=== PATIENT | female | born 1970 | race American Indian/Alaskan Native ===

== ENCOUNTER 2016-10-26 10:19 | Emergency (ER) | payer OTHER ==
[2016-10-26 11:04] VITALS: BP 147/90; PULSE 67; RESP 18; TEMP 98.5; O2SAT 99; BMI 20.8
[2016-10-26 11:38] LABS: URINE BILIRUBIN NEGATIVE (NEGATIVE); URINE BLOOD TRACE-INTACT (NEGATIVE); URINE GLUCOSE (UA) NEGATIVE (NEGATIVE); URINE KETONE NEGATIVE (NEGATIVE); URINE LEUKOCYTE ESTERASE NEGATIVE Leu/uL (NEGATIVE); URINE PROTEIN NEGATIVE mg/dL (<30 mg/dL); URINE UROBILINOGEN 0.2 E.U./dL (<1 E.U./dL)
[2016-10-26 11:43] LABS: URINE APPEARANCE CLEAR (CLEAR); URINE COLOR YELLOW (YELLOW)
[2016-10-26 11:52] LABS: URINE AMORPHOUS SEDIMENT TRACE; URINE BACTERIA MANY (NEG); URINE WBC 0 - 2 /hpf (0-6)
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
--- NOTE | 2016-10-26 12:39 | RAD ---
PROCEDURE: Right middle finger radiographs. HISTORY: finger pain s/p trauma COMPARISON: None available FINDINGS: RIGHT MIDDLE FINGER: Displaced fracture deformity of the proximal aspect distal 3rd phalanx, age indeterminate. Remainder of the right hand (as seen on the AP view) grossly unremarkable. JOINTS: No dislocation. SOFT TISSUES: Soft tissue swelling. No evidence of radiopaque foreign body. OTHER FINDINGS: None. IMPRESSION: Displaced fracture deformity of the proximal aspect distal 3rd phalanx, age indeterminate. Correlate with physical exam. Soft tissue swelling.
--- NOTE | 2016-10-26 12:54 | RAD ---
PROCEDURE: Left Hand Radiographs. HISTORY: finger pain s/p trauma COMPARISON: None. FINDINGS: BONES: Normal. No fracture. JOINTS: Normal. No osteoarthritic changes. SOFT TISSUES: Normal. OTHER FINDINGS: None. IMPRESSION: Normal left hand radiographs.
== END 2016-10-26 12:45 | disposition home or self-care (01) ==
LOC: ED 10:19
DX: S62.632A Displaced fracture of distal phalanx of right middle finger, initial encounter for closed fracture (principal); S63.612A Unspecified sprain of right middle finger, initial encounter; W22.8XXA Striking against or struck by other objects, initial encounter; R30.0 Dysuria; F17.210 Nicotine dependence, cigarettes, uncomplicated

== ENCOUNTER 2016-11-05 12:47 | Emergency (ER) | payer OTHER ==
--- NOTE | 2016-11-05 14:12 | ED PDOC ---
Arrival/HPI - General Time Seen by Provider: 11/05/16 13:45 - History of Present Illness Narrative History of Present Illness (Text): 46 y/o F c no PMHx p/w chest pain since yesterday. Describes pain as L sided, in a focal area, sharp, worse with movement or inspiration. She also notes subjective fever, nausea, NBNB vomiting x 2, loose stool, body aches. She denies cough, dysuria, rash, recent travel, surgery, or trauma. Denies history of cardiac disease or any cardiac testing in the past. Denies leg swelling, hormone use. Past Medical History - Past History Past History: No Previous - Infectious Disease Hx of Infectious Diseases: None - Tetanus Immunization Tetanus Immunization: Unknown - Past Medical History Past Medical History: No Previous (High cholesterol on the last primary care doctor visit) - Cardiac Hx Cardiac Disorders: No Other/Comment: Family History: Sister had stroke age 40 - Pulmonary Hx Respiratory Disorders: No - Neurological Hx Neurological Disorder: Yes Hx Dizziness: Yes Hx Seizures: Yes (1 time 31 years ago) - HEENT Hx HEENT Disorder: No - Renal Hx Renal Disorder: No - Endocrine/Metabolic Hx Endocrine Disorders: No - Hematological/Oncological Hx Blood Disorders: Yes Hx Anemia: Yes - Integumentary Hx Dermatological Disorder: No - Musculoskeletal/Rheumatological Hx Musculoskeletal Disorders: Yes Hx Falls: No Hx Fractures: Yes (Broken Foot and Ankle in the past) - Gastrointestinal Hx Gastrointestinal Disorders: Yes Hx Gastroesophageal Reflux: Yes Other/Comment: Gastritis - Genitourinary/Gynecological Hx Genitourinary Disorders: No - Psychiatric Hx Psychophysiologic Disorder: Yes Hx Depression: Yes Hx Emotional Abuse: No Hx Physical Abuse: No Hx Sexual Abuse: No Hx Substance Use: No - Surgical History Hx Section: Yes Other/Comment: 3 C-sections - Anesthesia Hx Anesthesia: Yes Hx Anesthesia Reactions: No Hx Malignant Hyperthermia: No - Suicidal Assessment Feels Threatened In Home Enviroment: No Family/Social History Family/Social History: No Known Family HX Smoking Status: Light Smoker < 10 Cigarettes Daily Hx Alcohol Use: Yes Hx Substance Use: No Hx Substance Use Treatment: No Allergies/Home Meds Allergies/Adverse Reactions: Allergies No Known Allergies Allergy (Verified 12/17/15 18:55) Review of Systems - Physician Review All systems were reviewed & negative as marked: Yes - Review of Systems Constitutional: Fevers Cardiovascular: Chest Pain Gastrointestinal: absent: Abdominal Pain Physical Exam - Physical Exam Narrative Physical Exam (Text): Constitutional: No acute distress. Head: Normocephalic. Atraumatic. Eyes: PERRL. ENT: Moist mucous membranes. Neck: Supple. Cardiovascular: Regular rate. Chest: Reproducible chest tenderness. Respiratory: Clear to auscultation bilaterally. GI: Soft. Nontender. Nondistended. Back: No CVA tenderness. Musculoskeletal: No swelling or tenderness. Skin: No rash. Neurologic: Alert, no focal deficit. Vital Signs Temp Pulse Resp BP Pulse Ox 11/05/16 16:43 98.1 F 60 18 132/78 100 11/05/16 12:48 54 L 18 139/85 100 Medical Decision Making ED Course and Treatment: EKG NSR 60 bpm, no ST/T wave changes. PERC negative. Likely viral syndrome. Will obtain cardiac enzymes to rule out ACS in this chest pain of over 24 hour duration. Will obtain CXR to exclude PNA. Treat with toradol, IVF, aspirin (patient took 162 at home). 11/05/16 16:34 Chest X-ray: Creator : Kal Woodson MD FINDINGS: LUNGS:No active pulmonary disease. PLEURA:No significant pleural effusion identified, no pneumothorax apparent. CARDIOVASCULAR:Normal. OSSEOUS STRUCTURES:No significant abnormalities. VISUALIZED UPPER ABDOMEN:Normal. OTHER FINDINGS:None. IMPRESSION: No active disease. Patient discharged home, f/u PMD, return to ER for worsening pain, fever, vomiting, dyspnea, or any other problem. - Lab Interpretations Lab Results: 11/05/16 14:30 11/05/16 14:30 Lab Results 11/05/16 14:30: WBC 6.2, RBC 3.96, Hgb 12.7, Hct 36.6, MCV 92.4, MCH 32.1, MCHC 34.7, RDW 13.5, Plt Count 274, MPV 11.5 H, Gran % 58.3, Lymph % (Auto) 32.0, [place] % (Auto) 7.9 H, Eos % (Auto) 0.8 L, Baso % (Auto) 1.0, Gran # 3.62, Lymph # 2.0, [place] # 0.5, Eos # 0.1, Baso # 0.06 11/05/16 14:30: Sodium 137, Potassium 4.2, Chloride 104, Carbon Dioxide 26, Anion Gap 11, BUN 14, Creatinine 0.7, Est GFR ( Amer) > 60, Est GFR (Non- Af Amer) > 60, Random Glucose 76, Calcium 9.8, Total Bilirubin 0.6, AST 30, ALT 35, Alkaline Phosphatase 59, Total Creatine Kinase 259 H, CK-MB (CK-2) 5.4 H, CK -MB (CK-2) % 2.1 L, Troponin I < 0.01, Total Protein 6.6, Albumin 4.0, Globulin 2.5, Albumin/Globulin Ratio 1.6, Lipase 248 11/05/16 14:30: Urine Color Yellow, Urine Appearance Clear, Urine pH 6.0, Ur Specific [place] >= 1.030, Urine Protein Negative, Urine Glucose (UA) Negative, Urine Ketones Negative, Urine Blood Trace-intact H, Urine Nitrate Negative, Urine Bilirubin Negative, Urine Urobilinogen 0.2, Ur Leukocyte Esterase Negative , Urine RBC 0 - 2, Urine WBC 0 - 2, Ur Epithelial Cells 1 - 3, Urine Bacteria Few - RAD Interpretation Radiology Orders: 11/05/16 15:26 CHEST PORTABLE [RAD] Stat - Medication Orders Current Medication Orders: Discontinued Medications Aspirin (Aspirin Chewable) Confirm Administered Dose 162 mg .ROUTE .STK-MED ONE Stop: 11/05/16 14:29 Ketorolac Tromethamine (Toradol) Confirm Administered Dose 30 mg .ROUTE .STK- MED ONE Stop: 11/05/16 14:29 Ondansetron HCl (Zofran Inj) Confirm Administered Dose 8 mg .ROUTE .STK-MED ONE Stop: 11/05/16 14:29 Disposition/Present on Arrival - Present on Arrival Any Indicators Present on Arrival: No History of DVT/PE: No History of Uncontrolled Diabetes: No Urinary Catheter: No History Surgical Site Infection Following: None - Disposition Have Diagnosis and Disposition been Completed?: Yes Diagnosis: Chest pain Disposition: HOME/ ROUTINE Disposition Time: 17:24 Patient Plan: Discharge Patient Problems: Current Active Problems Problem Status Onset Chest pain Acute Condition: STABLE Discharge Instructions (ExitCare): Chest Pain (ED), Viral Syndrome (ED) Referrals: [facility] [Outside] - Follow up with primary [facility] [Outside] - Follow up with primary
[2016-11-05 15:02] VITALS: RESP 18; O2SAT 100; BMI 22.4
[2016-11-05 15:25] LABS: URINE APPEARANCE CLEAR (CLEAR); URINE BILIRUBIN NEGATIVE (NEGATIVE); URINE BLOOD TRACE-INTACT (NEGATIVE); URINE COLOR YELLOW (YELLOW); URINE GLUCOSE (UA) NEGATIVE (NEGATIVE); URINE KETONE NEGATIVE (NEGATIVE); URINE LEUKOCYTE ESTERASE NEGATIVE Leu/uL (NEGATIVE); URINE PROTEIN NEGATIVE mg/dL (<30 mg/dL); URINE UROBILINOGEN 0.2 E.U./dL (<1 E.U./dL)
[2016-11-05 15:39] LABS: URINE BACTERIA FEW (NEG); URINE RBC 0 - 2 /hpf (0-2); URINE WBC 0 - 2 /hpf (0-6)
--- NOTE | 2016-11-05 16:32 | RAD ---
HISTORY: Chest Pain COMPARISON: 02/14/2015 FINDINGS: LUNGS: No active pulmonary disease. PLEURA: No significant pleural effusion identified, no pneumothorax apparent. CARDIOVASCULAR: Normal. OSSEOUS STRUCTURES: No significant abnormalities. VISUALIZED UPPER ABDOMEN: Normal. OTHER FINDINGS: None. IMPRESSION: No active disease.
[2016-11-05 16:44] VITALS: BP 132/78; PULSE 60; TEMP 98.1
[2016-11-05 16:51] LABS: ADD MANUAL DIFF? NO
[2016-11-05 16:54] LABS: BASO # 0.06 K/mm3 (0.0-2.0); EOS # 0.1 (0.0-0.7); EOS % 0.8 % (1.5-5.0); GRAN # 3.62 (1.4-6.5); GRAN % 58.3 % (50.0-68.0); HEMATOCRIT 36.6 % (36.0-48.0); MEAN CELL VOLUME 92.4 fL (80.0-105.0); MEAN CORPUSCULAR HEMOGLOBIN 32.1 pg (25.0-35.0); MEAN CORPUSCULAR HGB CONC 34.7 g/dl (31.0-37.0); MEAN PLATELET VOLUME 11.5 fl (7.0-11.0); MONO # 0.5 (0.1-0.6); MONO % 7.9 % (1.0-6.0); PLATELET COUNT 274 10^3/uL (120.0-450.0); RED CELL DISTRIBUTION WIDTH 13.5 % (11.5-14.5); WHITE BLOOD COUNT 6.2 10^3/ul (4.5-11.0)
[2016-11-05 17:04] LABS: ALB/GLOB RATIO 1.6 (1.1-1.8); ALKALINE PHOSPHATASE 59 U/L (38-133); ALT/SGPT 35 U/L (7-56); AST/SGOT 30 U/L (15-39); BILIRUBIN,TOTAL 0.6 mg/dL (0.2-1.3); BLOOD UREA NITROGEN 14 mg/dL (7-21); CALCIUM 9.8 mg/dL (8.4-10.5); CARBON DIOXIDE 26 mmol/L (21-33); CHLORIDE 104 mmol/L (98-107); GFR AFRICAN-AMERICAN > 60; GLUCOSE,RANDOM 76 mg/dL (70-110); LIPASE 248 U/L (23-300); POTASSIUM 4.2 mmol/L (3.6-5.0); SODIUM 137 mmol/L (132-148); TOTAL PROTEIN 6.6 g/dL (5.8-8.3)
[2016-11-05 17:19] LABS: TROPONIN I < 0.01 ng/mL
--- NOTE | 2016-11-05 18:18 | CARD ---
APPROVED REPORT EKG Measurement Heart [id number] <Conclusion> Normal sinus rhythm Normal ECG
== END 2016-11-05 17:45 | disposition home or self-care (01) ==
LOC: ED 12:47
DX: R07.9 Chest pain, unspecified (principal); Z82.3 Family history of stroke

== ENCOUNTER 2017-03-01 08:37 | Observation (INO) | payer OTHER ==
--- NOTE | 2017-03-01 09:09 | ED PDOC ---
Arrival/HPI - History of Present Illness Time/Duration: 4-6 hours Symptom Onset: Sudden Symptom Course: Unchanged Quality: Pressure Severity Level: 9 <Kamari Ramirez - Last Filed: 03/01/17 11:04> <Mike Hubbard - Last Filed: 03/01/17 11:08> - General Time Seen by Provider: 03/01/17 08:45 - History of Present Illness Narrative History of Present Illness (Text): 03/01/17 09:04 This is a 46 year old female with no significant PMHx who presents complaining of left sided chest pain that began at 3:00 this morning. Patient states that she woke up from sleep feeling a pressure like sensation that does not radiate. She also experienced right sided temporal headache with blurred vision as well as right arm and leg weakness. Patient feels short of breath and has pain with deep inspiration. Patient states that she is lightheaded and feels like she is about to pass out at times. Patient states that the last time she was asymptomatic was last night before she slept. Patient also complaining of diarrhea since 5:00 this morning. Of note, patient states that she has a significant family history of AVMs citing 4 family members who are due to it. (Kamari Ramirez) Past Medical History - Provider Review Nursing Documentation Reviewed: Yes - Past History Past History: No Previous - Infectious Disease Hx of Infectious Diseases: None - Tetanus Immunization Tetanus Immunization: Unknown - Past Medical History Past Medical History: No Previous (High cholesterol on the last primary care doctor visit) - Cardiac Hx Cardiac Disorders: No Other/Comment: Family History: Sister had stroke age 40 - Pulmonary Hx Respiratory Disorders: No - Neurological Hx Neurological Disorder: Yes Hx Dizziness: Yes Hx Seizures: Yes (1 time 31 years ago) - HEENT Hx HEENT Disorder: No - Renal Hx Renal Disorder: No - Endocrine/Metabolic Hx Endocrine Disorders: No - Hematological/Oncological Hx Blood Disorders: Yes Hx Anemia: Yes - Integumentary Hx Dermatological Disorder: No - Musculoskeletal/Rheumatological Hx Musculoskeletal Disorders: Yes Hx Falls: No Hx Fractures: Yes (Broken Foot and Ankle in the past) - Gastrointestinal Hx Gastrointestinal Disorders: Yes Hx Gastroesophageal Reflux: Yes Other/Comment: Gastritis - Genitourinary/Gynecological Hx Genitourinary Disorders: No - Psychiatric Hx Psychophysiologic Disorder: Yes Hx Depression: Yes Hx Emotional Abuse: No Hx Physical Abuse: No Hx Sexual Abuse: No Hx Substance Use: No - Surgical History Hx Section: Yes Other/Comment: 3 C-sections - Anesthesia Hx Anesthesia: Yes Hx Anesthesia Reactions: No Hx Malignant Hyperthermia: No - Suicidal Assessment Feels Threatened In Home Enviroment: No <Kamari Ramirez - Last Filed: 03/01/17 11:04> Family/Social History - Physician Review Nursing Documentation Reviewed: Yes Family/Social History: Other (AVM) Smoking Status: Light Smoker < 10 Cigarettes Daily Hx Alcohol Use: Yes Hx Substance Use: No Hx Substance Use Treatment: No <Kamari Ramirez S - Last Filed: 03/01/17 11:04> Allergies/Home Meds <Kamari Ramirez S - Last Filed: 03/01/17 11:04> <StevieMike Antonietta - Last Filed: 03/01/17 11:08> Allergies/Adverse Reactions: Allergies No Known Allergies Allergy (Verified 12/17/15 18:55) Home Medications: Home Meds Medication Instructions Recorded Confirmed No Known Home Med 03/01/17 03/01/17 Review of Systems - Review of Systems Constitutional: Normal Eyes: Vision Changes (blurred vision) ENT: Normal Respiratory: SOB, Other (pain with deep inspiration) Cardiovascular: Chest Pain (left sided close to sternum), Other (near-syncope) Gastrointestinal: Diarrhea Genitourinary Female: Normal Musculoskeletal: Normal Skin: Normal Neurological: Headache (right temporal) Hemo/Lymphatic: Normal Psychiatric: Normal <Kamari Ramirez S - Last Filed: 03/01/17 11:04> Physical Exam Vital Signs Reviewed: Yes Temperature: Afebrile Blood Pressure: Hypertensive Pulse: Regular Respiratory Rate: Normal Appearance: Positive for: Well-Appearing Pain Distress: Mild Mental Status: Positive for: Alert and Oriented X 3 - Systems Exam Head: Present: Atraumatic, Normocephalic Pupils: Present: PERRL Extroacular Muscles: Present: EOMI Conjunctiva: Present: Normal Mouth: Present: Moist Mucous Membranes Neck: Present: Normal Range of Motion Respiratory/Chest: Present: Good Air Exchange, Wheezes (right lower lobe end- expiratory wheezing). No: Accessory Muscle Use Cardiovascular: Present: Normal S1, S2, Bradycardic Abdomen: Present: Normal Bowel Sounds. No: Tenderness, Distention Upper Extremity: Present: Normal Inspection, NORMAL PULSES. No: Edema Lower Extremity: Present: Normal Inspection, NORMAL PULSES. No: Edema, CALF TENDERNESS Neurological: Present: GCS=15, CN II-XII Intact, Speech Normal, Motor Func Grossly Intact, Normal Sensory Function Skin: Present: Warm, Dry, Normal Color. No: Rashes <Kamari Ramirez - Last Filed: 03/01/17 11:04> Medical Decision Making <Kamari Ramirez - Last Filed: 03/01/17 11:04> - Lab Interpretations I have reviewed the lab results: Yes - EKG Interpretation Interpreted by ED Physician: Yes Type: 12 lead EKG <Mike Hubbard - Last Filed: 03/01/17 11:08> ED Course and Treatment: 03/01/17 09:16 EKG, Cardiac ISO, CBC, CMP, Coags, D dimer, Mag, Phos, CT Head w.o. contrast, Portable CXR, Urine , UA EKG shows sinus bradycardia at rate 59. No acute ST changes. (Kamari Ramirez) EKG: Ordered, reviewed, and independently interpreted the EKG. Rate : 57 BPM Rhythm : sinus bradycardia Interpretation : No ST-segment elevations or depressions, no T-wave inversions, normal intervals. Comparison : No previous EKG for comparison. 03/01/17 Patient Seen With Resident: In agreement with resident note which contains more details about the patient. Patient was seen and evaluated with resident. Came up with plan and treatment together. 03/01/17 10:[address] Esdras Art, who will admit patient to tele-observation. R/ o ACS and stroke (Mike Hubbard) - Lab Interpretations Lab Results: 03/01/17 09:16 03/01/17 09:16 Lab Results 03/01/17 09:30: D-Dimer, Quantitative 0.19 03/01/17 09:16: Urine Color Yellow, Urine Appearance Clear, Urine pH 6.0, Ur Specific [place] >= 1.030, Urine Protein Negative, Urine Glucose (UA) Negative, Urine Ketones Negative, Urine Blood Trace-intact H, Urine Nitrate Negative, Urine Bilirubin Negative, Urine Urobilinogen 0.2, Ur Leukocyte Esterase Negative , Urine RBC 0 - 2, Urine WBC 1 - 3, Ur Epithelial Cells 6 - 8, Urine Bacteria Trace 03/01/17 09:16: Sodium 142, Potassium 3.7, Chloride 107, Carbon Dioxide 27, Anion Gap 12, BUN 17, Creatinine 0.8, Est GFR ( Amer) > 60, Est GFR (Non- Af Amer) > 60, Random Glucose 89, Calcium 9.3, Phosphorus 4.3, Magnesium 1.7, Total Bilirubin 0.8, AST 26, ALT 27, Alkaline Phosphatase 56, Lactate Dehydrogenase 445, Total Creatine Kinase 101, Troponin I < 0.01, Total Protein 6.7, Albumin 4.1, Globulin 2.6, Albumin/Globulin Ratio 1.6 03/01/17 09:16: PT 10.3, INR 0.95, APTT 27.5 03/01/17 09:16: WBC 5.2, RBC 4.01, Hgb 12.5, Hct 36.9, MCV 92.0, MCH 31.2, MCHC 33.9, RDW 13.3, Plt Count 288, MPV 10.4, Gran % 58.2, Lymph % (Auto) 33.3, [place] % (Auto) 6.9 H, Eos % (Auto) 0.6 L, Baso % (Auto) 1.0, Gran # 3.02, Lymph # 1.7 , Dillon # 0.4, Eos # 0.0, Baso # 0.05 - RAD Interpretation Radiology Orders: 03/01/17 08:57 CXR [CHEST PORTABLE] [RAD] Stat 03/01/17 09:11 HEAD W/O CONTRAST [CT] Stat - Medication Orders Current Medication Orders: Discontinued Medications Aspirin (Aspirin Chewable) 324 mg PO STAT STA Stop: 03/01/17 10:20 Last Admin: 03/01/17 10:23 Dose: 324 mg Sodium Chloride (Sodium Chloride 0.9%) 500 mls @ 999 mls/hr IV .Q31M STA Stop: 03/01/17 10:40 Last Admin: 03/01/17 10:15 Dose: 999 mls/hr NIHSS Scale ([place]) Time Performed: 08:45 - How Severe is the Stoke Baseline Level of Consciousness: 0=Alert LOC to Questions: 0=Both comments correct LOC to commands: 0=Obeys both correctly Best Gaze: 0=Normal Visual: 0=No visual loss Facial: 0=Normal Motor Arm - Left: 0=No drift Motor Arm - Right: 0=No drift Motor Leg - Left: 0=No drift Motor Leg - Right: 0=No drift Limb Ataxia: 0=Absent Sensory: 0=Normal Best Language: 0=No aphasia Dysarthia: 0=Normal articulation Extinction & Inattention (Neglect): 0=Normal, no object Score: 0 Risk Level: No Stroke Risk <Mike Hubbard - Last Filed: 03/01/17 11:08> rTPA Inclusion/Exclusion - Refusal of Treatment Patient Refused Treatment: No - Inclusion Criteria for Altepase Patient is 18 years or Older: No The Clinical Diagnosis of Ischemic Stroke That is Causing a Potentially Disabling Neurological Deficit: Yes Time of Onset is Well Established to be Less Than 270 Minute Before Treatment Would Begin: No Risk/Benefit Discussed With Patient/Family Member Present: No <Mike Hubbard - Last Filed: 03/01/17 11:08> <Kamari Ramirez - Last Filed: 03/01/17 11:04> - PA / RENTAL AGENT / Resident Statement MD/DO has reviewed & agrees with the documentation as recorded. MD/DO has examined the patient and agrees with the treatment plan. - Scribe Statement The provider has reviewed the documentation as recorded by the Scribe <Mike Hubbard - Last Filed: 03/01/17 11:08> - Scribe Statement Zelda Mann Provider Scribe Attestation: All medical record entries made by the Scribe were at my direction and personally dictated by me. I have reviewed the chart and agree that the record accurately reflects my personal performance of the history, physical exam, medical decision making, and the department course for this patient. I have also personally directed, reviewed, and agree with the discharge instructions and disposition. (Mike Hubbard) Disposition/Present on Arrival - Present on Arrival Any Indicators Present on Arrival: No History of DVT/PE: No History of Uncontrolled Diabetes: No Urinary Catheter: No History Surgical Site Infection Following: None - Disposition Have Diagnosis and Disposition been Completed?: Yes Disposition Time: 10:30 <Kamari Ramirez - Last Filed: 03/01/17 11:04> - Disposition Patient Plan: Observation <Mike Hubbard - Last Filed: 03/01/17 11:08> - Disposition Diagnosis: Chest pain, TIA (transient ischemic attack) Disposition: HOSPITALIZED Patient Problems: Current Active Problems Problem Status Onset Chest pain Acute Condition: FAIR
[2017-03-01 09:27] LABS: URINE BILIRUBIN NEGATIVE (NEGATIVE); URINE BLOOD TRACE-INTACT (NEGATIVE); URINE GLUCOSE (UA) NEGATIVE (NEGATIVE); URINE KETONE NEGATIVE (NEGATIVE); URINE LEUKOCYTE ESTERASE NEGATIVE Leu/uL (NEGATIVE); URINE PROTEIN NEGATIVE mg/dL (<30 mg/dL); URINE UROBILINOGEN 0.2 E.U./dL (<1 E.U./dL)
[2017-03-01 09:28] LABS: URINE APPEARANCE CLEAR (CLEAR); URINE COLOR YELLOW (YELLOW)
[2017-03-01 09:29] LABS: BASO # 0.05 K/mm3 (0.0-2.0); EOS % 0.6 % (1.5-5.0); GRAN # 3.02 (1.4-6.5); GRAN % 58.2 % (50.0-68.0); HEMATOCRIT 36.9 % (36.0-48.0); LYMPH # 1.7 (1.2-3.4); LYMPH % 33.3 % (22.0-35.0); MEAN CORPUSCULAR HEMOGLOBIN 31.2 pg (25.0-35.0); MEAN CORPUSCULAR HGB CONC 33.9 g/dl (31.0-37.0); MEAN PLATELET VOLUME 10.4 fl (7.0-11.0); MONO # 0.4 (0.1-0.6); MONO % 6.9 % (1.0-6.0); RED CELL DISTRIBUTION WIDTH 13.3 % (11.5-14.5); WHITE BLOOD COUNT 5.2 10^3/ul (4.5-11.0)
[2017-03-01 09:32] LABS: INR 0.95 (0.93-1.08); PARTIAL THROMBOPLASTIN TIME 27.5 Seconds (23.7-30.8)
[2017-03-01 09:36] LABS: URINE BACTERIA TRACE (NEG); URINE RBC 0 - 2 /hpf (0-2)
[2017-03-01 09:47] LABS: ALB/GLOB RATIO 1.6 (1.1-1.8); ALKALINE PHOSPHATASE 56 U/L (38-126); ALT/SGPT 27 U/L (7-56); AST/SGOT 26 U/L (14-36); BILIRUBIN,TOTAL 0.8 mg/dL (0.2-1.3); BLOOD UREA NITROGEN 17 mg/dL (7-21); CALCIUM 9.3 mg/dL (8.4-10.5); CARBON DIOXIDE 27 mmol/L (21-33); CHLORIDE 107 mmol/L (98-107); GFR AFRICAN-AMERICAN > 60; GLUCOSE,RANDOM 89 mg/dL (70-110); MAGNESIUM 1.7 mg/dL (1.7-2.2); PHOSPHOROUS 4.3 mg/dL (2.5-4.5); POTASSIUM 3.7 mmol/L (3.6-5.0); SODIUM 142 mmol/L (132-148); TOTAL PROTEIN 6.7 g/dL (5.8-8.3)
[2017-03-01 09:58] LABS: TROPONIN I < 0.01 ng/mL
--- NOTE | 2017-03-01 10:09 | CT ---
PROCEDURE: CT HEAD WITHOUT CONTRAST. HISTORY: blurred vision, headache, chest pain. Fam Hx AVMs. COMPARISON: Comparison is made to 12/17/2015 TECHNIQUE: Axial computed tomography images were obtained through the head/brain without intravenous contrast. Radiation dose: Total exam DLP = 769.47 mGy-cm. This CT exam was performed using one or more of the following dose reduction techniques: Automated exposure control, adjustment of the mA and/or kV according to patient size, and/or use of iterative reconstruction technique. FINDINGS: HEMORRHAGE: No intracranial hemorrhage. BRAIN: No mass effect or edema. No atrophy or chronic microvascular ischemic changes. VENTRICLES: Unremarkable. No hydrocephalus. CALVARIUM: Unremarkable. PARANASAL SINUSES: Unremarkable as visualized. No significant inflammatory changes. MASTOID AIR CELLS: Unremarkable as visualized. No inflammatory changes. OTHER FINDINGS: None. IMPRESSION: No evidence of acute intracranial hemorrhage intracranial collection mass effect or midline shift. Neck and interval change since the previous exam noted.
[2017-03-01] MEDS ORDERED: Sodium Chloride 0.9% 500 ML IV STA (10:10)
--- NOTE | 2017-03-01 10:49 | RAD ---
HISTORY: chest pain COMPARISON: No prior. FINDINGS: LUNGS: No active pulmonary disease. PLEURA: No significant pleural effusion identified, no pneumothorax apparent. CARDIOVASCULAR: Normal. OSSEOUS STRUCTURES: No significant abnormalities. VISUALIZED UPPER ABDOMEN: Normal. OTHER FINDINGS: None. IMPRESSION: No active disease.
[2017-03-01 16:10] VITALS: BMI 20.8
[2017-03-01] MEDS ORDERED: Pneumococcal 23-Valent Vaccine IM ONE (16:11)
[2017-03-01 17:30] VITALS: RESP 20
--- NOTE | 2017-03-01 17:59 | CP.PCM.HP ---
Addendum entered and electronically signed by Yvonne Soliman DO 03/01/17 21:32: PE General: Pt is AAOx4, nontoxic appearing, in mild distress Head: Normocephalic, atraumatic Skin: Warm, dry HEENT: EOMI, PERRL, mucous membranes moist Neck: Mild R paracervical tenderness. CV: Regular rate and rhythm, +S1/S2, no murmurs, gallops, or rubs. (+) Reproducible chest wall tenderness to palpation. Respiratory: Lungs CTA bilaterally, no rales, rhonchi, or wheezing Abdomen: Soft, nondistended. (+) mild epigastric tenderness, no other tenderness. Extremities: No pedal edema, no calf tenderness. Good radial and DP pulses. Neuro: CN 2-12 intact. Motor: 4/5 strength in RUE and RLE as compared to 5/5 strength in LUE and LLE. Sensory deficit in C5/C5 dermatome on right. Patient is answering all questions appropriately. Psych: Normal affect, normal mood Original Note: <Yvonne Soliman - Last Filed: 03/01/17 21:21> History of Present Illness - History of Present Illness History of Present Illness: HPI: Pt is a 46 year old female with PMH significant for GERD and C4-C5 stenosis , who presents for evaluation of chest pain and dyspnea. Pt states that this morning, she woke up from sleep with midsternal chest pain described as sharp, like someone was kneeing her in the chest, rated 10/10, associated with dyspnea , blurry vision, and a sensation of dryness in the mouth. She states that she took Excedrin x 3, and the pain subsided until it returned again a few hours later while she was dropping off her grand children to school. She additionally reports an onset of nausea, nonbloody, nonbilious vomiting x2, and diarrhea x 3 that began this morning. She now reports the pain as rated 8/10, and states that the pain worsens when she presses on her chest. Pt states that she has had symptoms of chest pain intermittently for the past 2-3 weeks, however, symptoms worsened this morning, prompting hospital visit. She also states that she has had decreased appetite over the past few days. She has a history of dull, midepigastric abdominal pain for which she takes Famotidine. Denies recent cold or congestion, palpitations, or urinary symptoms. Pt additionally reports 3-4 day history of right sided headache radiating down to the R side of her neck, associated with back pain. She states that she has had a few month history of intermittent tingling and weakness to the R arm and leg, which has worsened over the past 2-3 weeks. She states that a few months ago, she fell and broke her finger because her R leg "gave out". She says that her R leg gives out once in a while, and sometimes she feels that it is more difficult to hold a cup with her R hand. Denies LOC, or recent falls. PMD: Pt does not like her PMD and does not see him PMH: GERD, C4-C5 stenosis with flattening of L side of the cord PSH: x3 [employer] IN[employer] history: , 1 natural , 3 C-sections. LMP was in July, Meds: Famotidine PRN, Excedrin PRN Allergies: NKDA Family hx: Aneurysms, strokes, seizures, DM, colon CA, throat CA, CAD, father Social hx: - smokes occasionally (2-3 cigarettes per day) - drinks EtOH (1 beer daily) - denies recreational drugs - lives with 2 young grandchildren - unemployed Present on Admission - Present on Admission Any Indicators Present on Admission: No Review of Systems - Review of Systems All systems: reviewed and no additional remarkable complaints except Review of Systems: As per HPI Past Patient History - Infectious Disease Hx of Infectious Diseases: None - Tetanus Immunizations Tetanus Immunization: Unknown - Past Social History Smoking Status: Current Some Days Smoker - CARDIAC Hx Cardiac Disorders: Yes Hx Hypercholesterolemia: Yes Other/Comment: Family History: Sister had stroke age 40 - PULMONARY Hx Respiratory Disorders: Yes (SMOKES 6 CIGARETTES EVERY NOW AND THEN.) - NEUROLOGICAL Hx Neurological Disorder: Yes Hx Dizziness: Yes Hx Seizures: Yes (1 time 31 years ago) - HEENT Hx HEENT Problems: No - RENAL Hx Chronic Kidney Disease: No - ENDOCRINE/METABOLIC Hx Endocrine Disorders: No - HEMATOLOGICAL/ONCOLOGICAL Hx Blood Disorders: Yes Hx Anemia: Yes (HAD BLOOD TRANSFUSION 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 1983) - INTEGUMENTARY Hx Dermatological Problems: No - MUSCULOSKELETAL/RHEUMATOLOGICAL Hx Musculoskeletal Disorders: Yes (CERVICAL RADICULOPATHY) Hx Falls: No Hx Fractures: Yes (Broken Foot and Ankle in the past) - GASTROINTESTINAL Hx Gastrointestinal Disorders: Yes Hx Gastroesophageal Reflux: Yes Other/Comment: Gastritis - GENITOURINARY/GYNECOLOGICAL Hx Genitourinary Disorders: Yes (C SECTION X 3) Hx Urinary Tract Infection: Yes - PSYCHIATRIC Hx Psychophysiologic Disorder: Yes Hx Depression: Yes Hx Emotional Abuse: No Hx Physical Abuse: No Hx Sexual Abuse: No Hx Substance Use: No - SURGICAL HISTORY Hx Surgeries: Yes Other/Comment: 3 C-sections - ANESTHESIA Hx Anesthesia: Yes Hx Anesthesia Reactions: No Hx Malignant Hyperthermia: No Meds Allergies/Adverse Reactions: Allergies Allergy/AdvReac Type Severity Reaction Status Date / Time No Known Allergies Allergy Verified 03/01/17 13:35 Results - Vital Signs Recent Vital Signs: Last Vital Signs Temp 98.8 F 03/01/17 16:00 Pulse 69 03/01/17 16:00 Resp 20 03/01/17 16:00 BP 148/99 H 03/01/17 16:00 Pulse Ox 100 03/01/17 16:00 - Labs Result Diagrams: 03/01/17 09:16 03/01/17 09:16 Assessment & Plan - Assessment and Plan (Free Text) Assessment: 46 yo F with PMH for GERD and C4-C5 stenosis w/ radiculopathy admitted for evaluation of chest pain, and right sided lower and upper extremity weakness and sensory loss. Plan: Chest pain - EKG, CXR, and labs ordered and WNL - Serial cardiac enzymes (troponin x 1 negative) - D-dimer negative, no indication for DVT/PE workup at this time - Low dose ASA - Cardiac consult R sided weakness and sensory loss. - CT head negative - MRI of the cervical spine from 12/18/15 shows moderate C4-C5 stenosis with moderate flattening of the left side of the cord - Repeat MRI spine/ Repeat MRI Brain - Folate/B12 lvls ordered - Neuro consult - PT eval Vomiting, diarrhea and abdominal pain - IVF - Cultures for C-diff - Stool Cultures - Protonix - Zofran/Pepcid PRN DVT prophylaxis - Heparin vs SCDs Patient seen, examined, and reviewed with Attending Yvonne Soliman - Date & Time Date: 03/01/17 Time: 01:30 <Austin SONI,Jenn - Last Filed: 03/02/17 13:24> Results - Vital Signs Recent Vital Signs: Last Vital Signs Temp 98.3 F 03/02/17 09:15 Pulse 51 L 03/02/17 09:15 Resp 20 03/02/17 09:15 BP 152/91 H 03/02/17 09:15 Pulse Ox 100 03/02/17 09:15 - Labs Result Diagrams: 03/02/17 05:15 03/02/17 05:15 Labs: Laboratory Results - last 24 hr 03/02/17 03/02/17 03/02/17 05:15 05:15 05:30 WBC 5.3 RBC 3.97 Hgb 12.5 Hct 36.7 MCV 92.4 MCH 31.5 MCHC 34.1 RDW 13.4 Plt Count 275 MPV 10.4 Gran % 47.3 L Lymph % (Auto) 44.5 H [place] % (Auto) 6.8 H Eos % (Auto) 0.8 L Baso % (Auto) 0.6 Gran # 2.52 Lymph # 2.4 [place] # 0.4 Eos # 0.0 Baso # 0.03 Sodium 140 Potassium 3.7 Chloride 107 Carbon Dioxide 27 Anion Gap 10 BUN 12 Creatinine 0.7 Est GFR ( Amer) > 60 Est GFR (Non-Af Amer) > 60 Random Glucose 98 Calcium 9.4 Total Bilirubin 0.9 AST 24 ALT 32 Alkaline Phosphatase 59 Troponin I < 0.01 Total Protein 6.5 Albumin 3.7 Globulin 2.8 Albumin/Globulin Ratio 1.3 Triglycerides 240 H Cholesterol 234 H LDL Cholesterol Direct 124 HDL Cholesterol 77 H Vitamin B12 430 03/02/17 12:15 WBC RBC Hgb Hct MCV MCH MCHC RDW Plt Count MPV Gran % Lymph % (Auto) [place] % (Auto) Eos % (Auto) Baso % (Auto) Gran # Lymph # [place] # Eos # Baso # Sodium Potassium Chloride Carbon Dioxide Anion Gap BUN Creatinine Est GFR ( Amer) Est GFR (Non-Af Amer) Random Glucose Calcium Total Bilirubin AST ALT Alkaline Phosphatase Troponin I < 0.01 Total Protein Albumin Globulin Albumin/Globulin Ratio Triglycerides Cholesterol LDL Cholesterol Direct HDL Cholesterol Vitamin B12 Attending/Attestation - Attestation I have personally seen and examined this patient.: Yes I have fully participated in the care of the patient.: Yes I have reviewed all pertinent clinical information: Yes Notes (Text): 03/02/17 13:18 Patient was seen and examined with medical records technician. Agreed with resident assessment and plan. 46 year old female with PMH significant for GERD and C4-C5 stenosis,chronic smoking, and non compliance is admitted with chest pain, EKG is negative for ischemic changes, has chest wall tenderness.Etiology is likely non cardiac.W will monitor patient in telemetry, will get serial troponins and will get cardiology consult. Patient has mild right leg weakness 4/5, which as per patient it is chronic.She is ambulatory with out any assistance.We will get MRI of Brain and C spine. Management plan was discussed in detail with patient Education was provided.
--- NOTE | 2017-03-01 20:54 | CARD ---
APPROVED REPORT EKG Measurement Heart [id number] <Conclusion> Sinus bradycardia Otherwise normal ECG
[2017-03-02] MEDS ORDERED: Pantoprazole 40 mg EC Tab PO SCH (06:00)
[2017-03-02 06:12] LABS: BASO # 0.03 K/mm3 (0.0-2.0); BASO % 0.6 % (0.0-3.0); EOS % 0.8 % (1.5-5.0); GRAN # 2.52 (1.4-6.5); GRAN % 47.3 % (50.0-68.0); HEMATOCRIT 36.7 % (36.0-48.0); LYMPH # 2.4 (1.2-3.4); LYMPH % 44.5 % (22.0-35.0); MEAN CELL VOLUME 92.4 fl (80.0-105.0); MEAN CORPUSCULAR HEMOGLOBIN 31.5 pg (25.0-35.0); MEAN CORPUSCULAR HGB CONC 34.1 g/dl (31.0-37.0); MEAN PLATELET VOLUME 10.4 fl (7.0-11.0); MONO # 0.4 (0.1-0.6); MONO % 6.8 % (1.0-6.0); RED CELL DISTRIBUTION WIDTH 13.4 % (11.5-14.5); WHITE BLOOD COUNT 5.3 10^3/ul (4.5-11.0)
[2017-03-02 07:31] LABS: ALB/GLOB RATIO 1.3 (1.1-1.8); ALKALINE PHOSPHATASE 59 U/L (38-126); ALT/SGPT 32 U/L (7-56); AST/SGOT 24 U/L (14-36); BILIRUBIN,TOTAL 0.9 mg/dL (0.2-1.3); BLOOD UREA NITROGEN 12 mg/dL (7-21); CALCIUM 9.4 mg/dL (8.4-10.5); CARBON DIOXIDE 27 mmol/L (21-33); CHLORIDE 107 mmol/L (95-110); CHOLESTEROL 234 mg/dL (130-200); GFR AFRICAN-AMERICAN > 60; GLUCOSE,RANDOM 98 mg/dL (70-110); POTASSIUM 3.7 mmol/L (3.6-5.0); SODIUM 140 mmol/L (132-148); TOTAL PROTEIN 6.5 g/dL (5.8-8.3)
--- NOTE | 2017-03-02 09:07 | MRI ---
PROCEDURE: MRI BRAIN WITHOUT CONTRAST HISTORY: neuropathy. Hx + MRI COMPARISON: Comparison made with prior brain 03/01/2017. TECHNIQUE: Multiplanar, multisequence MR images of the brain were obtained without intravenous contrast enhancement. FINDINGS: HEMORRHAGE: No acute parenchymal, subarachnoid nor extra-axial hemorrhage. No evidence of hemosiderin deposition anterior pleuritic repeat echo weighted sequence. DWI: No evidence of an acute or early subacute infarction seen on diffusion imaging exit. BRAIN PARENCHYMA: No mass effect or edema. No atrophy or chronic microvascular ischemic changes. VENTRICLES: No obstructive hydrocephalus. CRANIUM: No other calvarial abnormalities are identified. ORBITS: . Orbits and contents grossly unremarkable. PARANASAL SINUSES/MASTOIDS: Clear VASCULAR SYSTEM: Visualized major vascular flow voids at skull base are patent. OTHER FINDINGS: None. IMPRESSION: No acute intracranial hemorrhage or infarct.
--- NOTE | 2017-03-02 09:18 | MRI ---
PROCEDURE: MRI of the cervical spine dated 03/01/2017 HISTORY: Neuropathy. Hx of (+) MRI COMPARISON: None available. TECHNIQUE: Multiecho multiplanar sequences were performed through the cervical spine without the use of intravenous contrast. . Note the study is somewhat limited by motion artifact. FINDINGS: Current study reveals no acute compression fractures no retropulsed fragments. Vertebral bodies exhibit relatively normal stature. There is mild reversal of the normal cervical lordosis however vertebral bodies otherwise exhibit normal alignment. Facets normally aligned. Send No paraspinal abnormality. C2-C3: There is disc desiccation however disc space height maintained. Minimal degenerative squaring of the uncovertebral joints. . Facet joints also mildly hypertrophic. No disc herniation, spinal canal stenosis or neural foraminal narrowing. . C3-C4: Mild disc desiccation however disc space height maintained. Minimal broad-based disc bulge results in mild canal narrowing and flattening of the ventral surface of the thecal sac and spinal cord. . The facet joints are slightly overgrown with no evidence of foraminal stenosis. Herniation, spinal canal stenosis or neural foraminal narrowing. C4-C5: There is disc desiccation and mild anterior disc space narrowing. Small height medium sized asymmetric disc ridge complex larger on the left than right and contiguous with hypertrophic uncovertebral joints. Facets also hypertrophic. There is moderate to significant central canal stenosis and cord compression. Exit foramina appear marginal to mildly narrowed bilaterally. C5-C6: Mild age related disc desiccation and disc space narrowing more so along the anterior disc margin. Small focal central and bilateral disc ridge complex results mild canal narrowing and focal central cord compression. The facets are slightly overgrown. Exit foramina appear adequate. C6-C7: Mild age related disc desiccation. Disc space height maintained. No disc herniation or significant disc bulge. C7-T1: No disc herniation, spinal canal stenosis or neural foraminal narrowing. OTHER FINDINGS: No definitive intrinsic signal changes seen within the visualized spinal cord. Cervicomedullary junction unremarkable. IMPRESSION: Limited motion degraded study. Mild to moderate multilevel degenerative spondylosis with significant central canal stenosis at the C4-C5 and to a lesser degree C3-C4 levels as detailed above.
--- NOTE | 2017-03-02 16:16 | CP.PCM.CON ---
<Alvin Bernard - Last Filed: 03/02/17 18:06> History of Present Illness - History of Present Illness History of Present Illness: Neurology Consult Note for Dr. 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 As per patient, the dizziness and nausea are intermittent, no specific triggering factors. Also reports new onset weakness in her RUE and RLE prior to arrival. She reports she is generally improved today, her blurred vision is resolved, her headache is improved, as is her extremity weakness. Some residual chest pain and associated shortness of breath, but denies nausea/emesis , fevers/chills, new vision changes, diarrhea/constipation, dysuria/hematuria, or near-syncope/syncope. R Arm paresthesia not worsened with head movements, RLE paresthesia not impeding gait. All other ROS in 12-point system review negative PMH: as above PSH: x3 FHx: Aneurysms, strokes, seizures, DM, colon CA, throat CA, CAD SHx: admits tobacco (2-3 cigarettes per day) & EtOH (1 beer daily), denies illicits/IVDA PMD: None Review of Systems - Review of Systems All systems: reviewed and no additional remarkable complaints except (as per HPI ) Past Patient History - Infectious Disease Hx of Infectious Diseases: None - Tetanus Immunizations Tetanus Immunization: Unknown - Past Social History Smoking Status: Current Some Days Smoker - CARDIAC Hx Cardiac Disorders: Yes Hx Hypercholesterolemia: Yes - PULMONARY Hx Respiratory Disorders: Yes (SMOKES 6 CIGARETTES EVERY NOW AND THEN.) - NEUROLOGICAL Hx Neurological Disorder: Yes Hx Dizziness: Yes Hx Seizures: Yes (1 time 31 years ago) - HEENT Hx HEENT Problems: No - RENAL Hx Chronic Kidney Disease: No - ENDOCRINE/METABOLIC Hx Endocrine Disorders: No - HEMATOLOGICAL/ONCOLOGICAL Hx Blood Disorders: Yes Hx Anemia: Yes (HAD BLOOD TRANSFUSION 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 1983) - INTEGUMENTARY Hx Dermatological Problems: No - MUSCULOSKELETAL/RHEUMATOLOGICAL Hx Musculoskeletal Disorders: Yes (CERVICAL RADICULOPATHY) Hx Falls: No Hx Fractures: Yes (Broken Foot and Ankle in the past) - GASTROINTESTINAL Hx Gastrointestinal Disorders: Yes Hx Gastroesophageal Reflux: Yes Other/Comment: Gastritis - GENITOURINARY/GYNECOLOGICAL Hx Genitourinary Disorders: Yes (C SECTION X 3) Hx Urinary Tract Infection: Yes - PSYCHIATRIC Hx Psychophysiologic Disorder: Yes Hx Depression: Yes Hx Emotional Abuse: No Hx Physical Abuse: No Hx Sexual Abuse: No Hx Substance Use: No - SURGICAL HISTORY Hx Surgeries: Yes Other/Comment: 3 C-sections - ANESTHESIA Hx Anesthesia: Yes Hx Anesthesia Reactions: No Hx Malignant Hyperthermia: No Meds Allergies/Adverse Reactions: Allergies Allergy/AdvReac Type Severity Reaction Status Date / Time No Known Allergies Allergy Verified 03/01/17 13:35 - Medications Medications: Current Medications Acetaminophen (Tylenol 325mg Tab) 650 mg PO Q6H PRN PRN Reason: Pain, severe (8-10) Last Admin: 03/01/17 21:37 Dose: 650 mg Aspirin (Aspirin Chewable) 81 mg PO DAILY TARUN Last Admin: 03/02/17 12:27 Dose: 81 mg Atorvastatin Calcium (Lipitor) 20 mg PO DIN TARUN Gabapentin (Neurontin) 100 mg PO TID TARUN PRN Reason: Protocol Ketorolac Tromethamine (Toradol) 15 mg IVP Q6 PRN PRN Reason: Headache/ Pain (Severe 8-10) Ondansetron HCl (Zofran Inj) 4 mg IVP Q6H PRN PRN Reason: Nausea/Vomiting Pantoprazole Sodium (Protonix Ec Tab) 40 mg PO 0600 [facility] Physical Exam - Constitutional Appears: Well, Non-toxic, No Acute Distress - Head Exam Head Exam: ATRAUMATIC, NORMAL INSPECTION, NORMOCEPHALIC - Eye Exam Eye Exam: EOMI, Normal appearance, PERRL. absent: Conjunctival injection, Scleral icterus Pupil Exam: NORMAL ACCOMODATION, PERRL. absent: Fixed, Irregular, Unequal - ENT Exam ENT Exam: Mucous Membranes Moist. absent: Mucous Membranes Dry - Neck Exam Neck exam: Positive for: Full Rom (some intentional limitation of movement due to pain, but passive ROM fully intact), Tenderness (some pain with rotational movement R) Additional comments: no exacerbation of RUE paresthesia with any ROM testing, or neck compression Spurling's negative No restricted clavicle on R - Respiratory Exam Respiratory Exam: Clear to Auscultation Bilateral, NORMAL BREATHING PATTERN. absent: Accessory Muscle Use, Chest Wall Tenderness, Decreased Breath Sounds, Prolonged Expiratory Phase, Rales, Rhonchi, Wheezes, Respiratory Distress - Cardiovascular Exam Cardiovascular Exam: REGULAR RHYTHM, RRR, +S1, +S2. absent: Bradycardia, Tachycardia, Irregular Rhythm, JVD, +S4 - GI/Abdominal Exam GI & Abdominal Exam: Normal Bowel Sounds, Soft. absent: Distended, Firm, Rigid , Tenderness - Extremities Exam Extremities exam: Positive for: full ROM, normal capillary refill, normal inspection, pedal pulses present. Negative for: calf tenderness, joint swelling , pedal edema, tenderness Additional comments: reported RLE paresthesia, but full ROM and equal bilateral LE motor strength - Neurological Exam Neurological exam: Alert, CN II-XII Intact, Normal Gait, Oriented x3 Additional comments: Motor strength 5/5 bilateral UE/LE/mussel opener Sensory grossly intact and equal bilaterally No-sided extinct on palpatory testing bilaterally - Psychiatric Exam Psychiatric exam: Anxious, Normal Affect - Skin Skin Exam: Dry, Intact, Normal Color, Warm Results - Vital Signs Recent Vital Signs: Last Vital Signs Temp 98.3 F 03/02/17 09:15 Pulse 60 03/02/17 10:00 Resp 20 03/02/17 09:15 BP 152/91 H 03/02/17 09:15 Pulse Ox 100 03/02/17 09:15 - Labs Result Diagrams: 03/02/17 05:15 03/02/17 05:15 Labs: Laboratory Results - last 24 hr 03/02/17 03/02/17 03/02/17 05:15 05:15 05:30 WBC 5.3 RBC 3.97 Hgb 12.5 Hct 36.7 MCV 92.4 MCH 31.5 MCHC 34.1 RDW 13.4 Plt Count 275 MPV 10.4 Gran % 47.3 L Lymph % (Auto) 44.5 H [place] % (Auto) 6.8 H Eos % (Auto) 0.8 L Baso % (Auto) 0.6 Gran # 2.52 Lymph # 2.4 [place] # 0.4 Eos # 0.0 Baso # 0.03 Sodium 140 Potassium 3.7 Chloride 107 Carbon Dioxide 27 Anion Gap 10 BUN 12 Creatinine 0.7 Est GFR ( Amer) > 60 Est GFR (Non-Af Amer) > 60 Random Glucose 98 Calcium 9.4 Total Bilirubin 0.9 AST 24 ALT 32 Alkaline Phosphatase 59 Troponin I < 0.01 Total Protein 6.5 Albumin 3.7 Globulin 2.8 Albumin/Globulin Ratio 1.3 Triglycerides 240 H Cholesterol 234 H LDL Cholesterol Direct 124 HDL Cholesterol 77 H Vitamin B12 430 TSH 3rd Generation 03/02/17 03/02/17 12:15 13:25 WBC RBC Hgb Hct MCV MCH MCHC RDW Plt Count MPV Gran % Lymph % (Auto) [place] % (Auto) Eos % (Auto) Baso % (Auto) Gran # Lymph # [place] # Eos # Baso # Sodium Potassium Chloride Carbon Dioxide Anion Gap BUN Creatinine Est GFR ( Amer) Est GFR (Non-Af Amer) Random Glucose Calcium Total Bilirubin AST ALT Alkaline Phosphatase Troponin I < 0.01 Total Protein Albumin Globulin Albumin/Globulin Ratio Triglycerides Cholesterol LDL Cholesterol Direct HDL Cholesterol Vitamin B12 TSH 3rd Generation 1.29 Assessment & Plan - Assessment and Plan (Free Text) Assessment: This is a 46 yo AA F with PMH of seizures, gastritis, and 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 She is also complaining of RUE and RLE weakness. Her RUE weakness is likely 2/2 her C4-C5 stenosis. No signs of thoracic outlet compressions, motor strength in bilateral extremities improved and equal in bilateral upper and lower. There does not appear to be an acute neurologic component to her reported RLE weakness; comparable strength to LLE on exam today. May be anxiety component to her general presentation, as she admits that she gets anxious about her health. Her dizziness may be 2/2 stenosis vs anxiety, may also be a vasovagal component. Head CT and MRI brain were negatie for any acute findings. Cervical spine MRI notable for mild-moderate multilevel degenerative spondylosis with significant central canal stenosis at C4/5 and some at C3/4. Plan: 1) Fioricet q8 TARUN x6 dose for headache 2) PT/OT, may require therapy outpt for her RUE/hand weakness 3) Gabapentin 100mg PO TID for neuropathy Patient reviewed and discussed with attending, Dr. Snow. <Richard Snow - Last Filed: 03/02/17 21:21> Meds - Medications Medications: Current Medications Acetaminophen (Tylenol 325mg Tab) 650 mg PO Q6H PRN PRN Reason: Pain, severe (8-10) Last Admin: 03/01/17 21:37 Dose: 650 mg Acetaminophen/Butalbital/Caffeine (Fioricet) 1 tab PO Q8 [facility] Stop: 03/04/17 06:01 Last Admin: 03/02/17 17:50 Dose: 1 tab Aspirin (Aspirin Chewable) 81 mg PO DAILY [facility] Last Admin: 03/02/17 12:27 Dose: 81 mg Atorvastatin Calcium (Lipitor) 20 mg PO DIN [facility] Last Admin: 03/02/17 17:50 Dose: 20 mg Gabapentin (Neurontin) 100 mg PO TID [facility] PRN Reason: Protocol Last Admin: 03/02/17 17:50 Dose: 100 mg Ketorolac Tromethamine (Toradol) 15 mg IVP Q6 PRN PRN Reason: Headache/ Pain (Severe 8-10) Ondansetron HCl (Zofran Inj) 4 mg IVP Q6H PRN PRN Reason: Nausea/Vomiting Pantoprazole Sodium (Protonix Ec Tab) 40 mg PO 0600 [facility] Results - Vital Signs Recent Vital Signs: Last Vital Signs Temp 98.6 F 03/02/17 16:00 Pulse 54 L 03/02/17 16:00 Resp 20 03/02/17 16:00 BP 128/87 03/02/17 16:00 Pulse Ox 100 03/02/17 16:00 - Labs Result Diagrams: 03/02/17 05:15 03/02/17 05:15 Labs: Laboratory Results - last 24 hr 03/02/17 03/02/17 03/02/17 05:15 05:15 05:30 WBC 5.3 RBC 3.97 Hgb 12.5 Hct 36.7 MCV 92.4 MCH 31.5 MCHC 34.1 RDW 13.4 Plt Count 275 MPV 10.4 Gran % 47.3 L Lymph % (Auto) 44.5 H [place] % (Auto) 6.8 H Eos % (Auto) 0.8 L Baso % (Auto) 0.6 Gran # 2.52 Lymph # 2.4 [place] # 0.4 Eos # 0.0 Baso # 0.03 Sodium 140 Potassium 3.7 Chloride 107 Carbon Dioxide 27 Anion Gap 10 BUN 12 Creatinine 0.7 Est GFR ( Amer) > 60 Est GFR (Non-Af Amer) > 60 Random Glucose 98 Calcium 9.4 Total Bilirubin 0.9 AST 24 ALT 32 Alkaline Phosphatase 59 Troponin I < 0.01 Total Protein 6.5 Albumin 3.7 Globulin 2.8 Albumin/Globulin Ratio 1.3 Triglycerides 240 H Cholesterol 234 H LDL Cholesterol Direct 124 HDL Cholesterol 77 H Vitamin B12 430 TSH 3rd Generation 03/02/17 03/02/17 12:15 13:25 WBC RBC Hgb Hct MCV MCH MCHC RDW Plt Count MPV Gran % Lymph % (Auto) [place] % (Auto) Eos % (Auto) Baso % (Auto) Gran # Lymph # [place] # Eos # Baso # Sodium Potassium Chloride Carbon Dioxide Anion Gap BUN Creatinine Est GFR ( Amer) Est GFR (Non-Af Amer) Random Glucose Calcium Total Bilirubin AST ALT Alkaline Phosphatase Troponin I < 0.01 Total Protein Albumin Globulin Albumin/Globulin Ratio Triglycerides Cholesterol LDL Cholesterol Direct HDL Cholesterol Vitamin B12 TSH 3rd Generation 1.29 Attending/Attestation - Attestation I have personally seen and examined this patient.: Yes I have fully participated in the care of the patient.: Yes I have reviewed all pertinent clinical information: Yes
[2017-03-02] MEDS: Apap-Butalbital-Caffeine 325-50-40mg Tab PO SCH (17:50)
--- NOTE | 2017-03-02 19:27 | CP.PCM.DIS ---
Provider - Provider Date of Admission: 03/01/17 10:33 Attending physician: Jenn Avila MD Consults: Neuro - Edy Mattinallah - Cardio Time Spent in preparation of Discharge (in minutes): 40 Diagnosis - Discharge Diagnosis (1) Chest pain Status: Resolved (2) Weakness of left arm Status: Resolved Hospital Course - Lab Results Lab Results: Most Recent Lab Values WBC 5.3 10^3/ul (4.5-11.0) 03/02/17 05:15 RBC 3.97 10^6/uL (3.5-6.1) 03/02/17 05:15 Hgb 12.5 g/dL (12.0-16.0) 03/02/17 05:15 Hct 36.7 % (36.0-48.0) 03/02/17 05:15 MCV 92.4 fl (80.0-105.0) 03/02/17 05:15 MCH 31.5 pg (25.0-35.0) 03/02/17 05:15 MCHC 34.1 g/dl (31.0-37.0) 03/02/17 05:15 RDW 13.4 % (11.5-14.5) 03/02/17 05:15 Plt Count 275 10^3/uL (120.0-450.0) 03/02/17 05:15 MPV 10.4 fl (7.0-11.0) 03/02/17 05:15 Gran % 47.3 % (50.0-68.0) L 03/02/17 05:15 Lymph % (Auto) 44.5 % (22.0-35.0) H 03/02/17 05:15 Pierce % (Auto) 6.8 % (1.0-6.0) H 03/02/17 05:15 Eos % (Auto) 0.8 % (1.5-5.0) L 03/02/17 05:15 Baso % (Auto) 0.6 % (0.0-3.0) 03/02/17 05:15 Gran # 2.52 (1.4-6.5) 03/02/17 05:15 Lymph # 2.4 (1.2-3.4) 03/02/17 05:15 Pierce # 0.4 (0.1-0.6) 03/02/17 05:15 Eos # 0.0 (0.0-0.7) 03/02/17 05:15 Baso # 0.03 K/mm3 (0.0-2.0) 03/02/17 05:15 PT 10.3 Seconds (9.9-11.8) 03/01/17 09:16 INR 0.95 (0.93-1.08) 03/01/17 09:16 APTT 27.5 Seconds (23.7-30.8) 03/01/17 09:16 D-Dimer, Quantitative 0.19 mg/L FEU (0-0.50) 03/01/17 09:30 Sodium 140 mmol/L (132-148) 03/02/17 05:15 Potassium 3.7 mmol/L (3.6-5.0) 03/02/17 05:15 Chloride 107 mmol/L (95-110) 03/02/17 05:15 Carbon Dioxide 27 mmol/L (21-33) 03/02/17 05:15 Anion Gap 10 (10-20) 03/02/17 05:15 BUN 12 mg/dL (7-21) 03/02/17 05:15 Creatinine 0.7 mg/dL (0.5-1.4) 03/02/17 05:15 Est GFR ( Amer) > 60 03/02/17 05:15 Est GFR (Non-Af Amer) > 60 03/02/17 05:15 Random Glucose 98 mg/dL (70-110) 03/02/17 05:15 Calcium 9.4 mg/dL (8.4-10.5) 03/02/17 05:15 Phosphorus 4.3 mg/dL (2.5-4.5) 03/01/17 09:16 Magnesium 1.7 mg/dL (1.7-2.2) 03/01/17 09:16 Total Bilirubin 0.9 mg/dL (0.2-1.3) 03/02/17 05:15 AST 24 U/L (14-36) 03/02/17 05:15 ALT 32 U/L (7-56) 03/02/17 05:15 Alkaline Phosphatase 59 U/L (38-126) 03/02/17 05:15 Lactate Dehydrogenase 445 U/L (333-699) 03/01/17 09:16 Total Creatine Kinase 101 U/L (35-230) 03/01/17 09:16 Troponin I < 0.01 ng/mL 03/02/17 12:15 Total Protein 6.5 g/dL (5.8-8.3) 03/02/17 05:15 Albumin 3.7 g/dL (3.0-4.8) 03/02/17 05:15 Globulin 2.8 gm/dL 03/02/17 05:15 Albumin/Globulin Ratio 1.3 (1.1-1.8) 03/02/17 05:15 Triglycerides 240 mg/dL (35-160) H 03/02/17 05:15 Cholesterol 234 mg/dL (130-200) H 03/02/17 05:15 LDL Cholesterol Direct 124 mg/dL (0-129) 03/02/17 05:15 HDL Cholesterol 77 mg/dL (29-60) H 03/02/17 05:15 Vitamin B12 430 pg/mL (239-931) 03/02/17 05:15 TSH 3rd Generation 1.29 mIU/mL (0.46-4.68) 03/02/17 13:25 Urine Color Yellow (YELLOW) 03/01/17 09:16 Urine Appearance Clear (CLEAR) 03/01/17 09:16 Urine pH 6.0 (4.7-8.0) 03/01/17 09:16 Ur Specific Ferrum >= 1.030 (1.005-1.035) 03/01/17 09:16 Urine Protein Negative mg/dL (<30 mg/dL) 03/01/17 09:16 Urine Glucose (UA) Negative mg/dL (NEGATIVE) 03/01/17 09:16 Urine Ketones Negative mg/dL (NEGATIVE) 03/01/17 09:16 Urine Blood Trace-intact (NEGATIVE) H 03/01/17 09:16 Urine Nitrate Negative (NEGATIVE) 03/01/17 09:16 Urine Bilirubin Negative (NEGATIVE) 03/01/17 09:16 Urine Urobilinogen 0.2 E.U./dL (<1 E.U./dL) 03/01/17 09:16 Ur Leukocyte Esterase Negative Neeru/uL (NEGATIVE) 03/01/17 09:16 Urine RBC 0 - 2 /hpf (0-2) 03/01/17 09:16 Urine WBC 1 - 3 /hpf (0-6) 03/01/17 09:16 Ur Epithelial Cells 6 - 8 /hpf (0-5) 03/01/17 09:16 Urine Bacteria Trace (NEG) 03/01/17 09:16 - Hospital Course Hospital Course: Pt is a 46 year old female with PMH significant for GERD and C4-C5 stenosis, who presented for evaluation of chest pain and dyspnea. Pt reported that she had had 2-3 weeks of intermittent chest pain, however, on the morning of her admission, she had 2 brief episodes of sharp, severe chest pain associated with dyspnea, of which both subsided within a few minutes. Pt had also had nausea, vomiting, and diarrhea that morning. Pt additionally reported few month history of paresthesias to the right arm and leg, sometimes associated with some weakness, causing her to fall a few times. She had complaints of right sided headache radiating down to the neck. In the ED, pt had a CT of the head and CXR, which were WNL. Patient was admitted for evaluation of chest pain and right sided weakness. During her admission, pt had no additional episodes of chest pain, dyspnea, vomiting, or diarrhea. v Serial cardiac enzymes were negative. Prior records were reviewed revealing patient had an MRI of the cervical spine showing C4-C5 stenosis. Repeat MRI was done showing similar C4-C5 stenosis, and also some mild C3-C4 stenosis, brain MRI was negative. Recruiter was consulted, who requested an echocardiogram, which was WNL, and cleared the patient. Neurologist was also consulted, who requested Rx for neurontin and outpatient follow up. Patient additionally had cholesterol panel showing hypercholesterolemia and hypertriglyceridemia. At the time of discharge, patient reports feeling better. Headache is improved , patient is hungry and tolerating PO. She denies further chest pain, dyspnea, visual or hearing changes, abdominal pain, N/V/D, and is able to walk around on her own. Discussed with patient need for dietary modifications to reduce cholesterol. She expresses understanding and is comfortable with the plan of discharge. Patient seen, examined, and reviewed with Attending Yvonne Soliman PGY-1 - Date & Time of H&P Date of H&P: 03/02/17 Time of H&P: 11:00 Discharge Exam - Head Exam Head Exam: ATRAUMATIC, NORMAL INSPECTION, NORMOCEPHALIC - Eye Exam Eye Exam: EOMI, Normal appearance - ENT Exam ENT Exam: Mucous Membranes Moist - Respiratory Exam Respiratory Exam: Clear to PA & Lateral, NORMAL BREATHING PATTERN, UNREMARKABLE - Cardiovascular Exam Cardiovascular Exam: RRR, +S1, +S2 - GI/Abdominal Exam GI & Abdominal Exam: Soft. absent: Tenderness - Extremities Exam Additional comments: absent pedal edema - Back Exam Back exam: absent: CVA tenderness (L), CVA tenderness (R) - Neurological Exam Neurological exam: Alert, Oriented x3 - Psychiatric Exam Psychiatric exam: Normal Affect, Normal Mood - Skin Skin Exam: Dry, Intact, Normal Color, Warm Discharge Plan - Follow Up Plan Condition: FAIR Disposition: HOME/ ROUTINE Instructions: Transient Ischemic Attack (DC), Chest Pain (ED)
--- NOTE | 2017-03-02 19:35 | CP.PCM.PN ---
<Yvonne Soliman - Last Filed: 03/02/17 19:35> Subjective - Date & Time of Evaluation Date of Evaluation: 03/02/17 Time of Evaluation: 19:34 - Subjective Subjective: Patient has been seen and examined. No overnight events reported. She has no complaints at this time. Denies CP,SOB, blurry vision, and weakness. Objective - Vital Signs/Intake and Output Vital Signs (last 24 hours): Temp Pulse Resp BP Pulse Ox 98.6 F 54 L 20 128/87 100 03/02/17 16:00 03/02/17 16:00 03/02/17 16:00 03/02/17 16:00 03/02/17 16:00 - Labs Labs: 03/02/17 05:15 03/02/17 05:15 PT 10.3 Seconds (9.9-11.8) 03/01/17 09:16 INR 0.95 (0.93-1.08) 03/01/17 09:16 APTT 27.5 Seconds (23.7-30.8) 03/01/17 09:16 - Constitutional Appears: Well, Non-toxic, No Acute Distress - Head Exam Head Exam: ATRAUMATIC, NORMOCEPHALIC - Eye Exam Eye Exam: EOMI, Normal appearance - ENT Exam ENT Exam: Mucous Membranes Moist - Respiratory Exam Respiratory Exam: Clear to Ausculation Bilateral, NORMAL BREATHING PATTERN - Cardiovascular Exam Cardiovascular Exam: RRR, +S1, +S2 - GI/Abdominal Exam GI & Abdominal Exam: Soft. absent: Tenderness - Extremities Exam Extremities Exam: absent: Pedal Edema - Neurological Exam Neurological Exam: Alert, Awake, Oriented x3 Neuro motor strength exam: Left Upper Extremity: 5, Right Upper Extremity: 5, Left Lower Extremity: 5, Right Lower Extremity: 5 - Psychiatric Exam Psychiatric exam: Normal Affect, Normal Mood - Skin Skin Exam: Dry, Intact, Normal Color, Warm Assessment and Plan - Assessment and Plan (Free Text) Assessment: 6 yo F with PMH for GERD and C4-C5 stenosis w/ radiculopathy admitted for evaluation of chest pain, and right sided lower and upper extremity weakness and sensory loss. Plan: Plan: Chest pain - EKG, CXR, and labs ordered and WNL - serial troponins (-) - D-dimer negative, no indication for DVT/PE workup at this time - Low dose ASA - Cardiac consult R sided weakness and sensory loss. - CT head negative - MRI of the cervical spine shows C3-4 stenosis and more severe stenosis at C4- C5 - Brain MRI normal - B12 levels normal - Neuro consulted recs appreciated. - PT eval Vomiting, diarrhea and abdominal pain (resolved) - Protonix - Zofran/Pepcid PRN DVT prophylaxis - Heparin vs SCDs Patient seen, examined, and reviewed with Attending Yvonne Soliman <Austin SONI,Jenn - Last Filed: 03/03/17 14:42> Objective - Vital Signs/Intake and Output Vital Signs (last 24 hours): Temp Pulse Resp BP Pulse Ox 97.8 F 44 L 20 137/77 99 03/03/17 06:00 03/03/17 10:00 03/03/17 06:00 03/03/17 06:00 03/03/17 06:00 Intake and Output: 03/03/17 03/03/17 06:59 18:59 Intake Total 660 Balance 660 - Labs Labs: 03/02/17 05:15 03/02/17 05:15 PT 10.3 Seconds (9.9-11.8) 03/01/17 09:16 INR 0.95 (0.93-1.08) 03/01/17 09:16 APTT 27.5 Seconds (23.7-30.8) 03/01/17 09:16 Attending/Attestation - Attestation I have personally seen and examined this patient.: Yes I have fully participated in the care of the patient.: Yes I have reviewed all pertinent clinical information, including history, physical exam and plan: Yes Notes (Text): 03/03/17 14:38 Patient was seen and examined with medical coordinator pesticide use. Agreed with resident assessment and plan. 46 year old female with PMH significant for GERD and C4-C5 stenosis,chronic smoking, and non compliance is admitted with chest pain, EKG is negative for ischemic changes, has chest wall tenderness.Etiology is likely non cardiac.Telemetry is unremarkable.Serial troponins are normal.We will follow up Echo results, if no significant abnormality.She can be discharged home and will follow up with PCP and cardiology. Patient has mild right leg weakness 4/5, which as per patient it is chronic.She is ambulatory with out any assistance.MRI of Brain is normal.MRI c spine showed c4-C5 mild spinal stenosis which is stable.Patient is ambulatory.Neurology evaluation is appreciated. Management plan was discussed in detail with patient Education was provided. 03/03/17 14:40
--- NOTE | 2017-03-02 22:09 | CARD ---
APPROVED REPORT EXAM: Two-dimensional and M-mode echocardiogram with Doppler and color Doppler. INDICATION Chest Pain 2D DIMENSIONS Left Atrium (2D)3.1 (1.6-4.0cm)IVSd1.3 (0.7-1.1cm) LVDd4.2 (3.9-5.9cm)PWd1.2 (0.7-1.1cm) LVDs2.7 (2.5-4.0cm)FS (%) 35.6 % LVEF (%)65.4 (>50%) M-Mode DIMENSIONS Aortic Root2.50 (2.2-3.7cm)Aortic Cusp Exc.1.70 (1.5-2.0cm) Aortic Valve AoV Peak Tswlxihp295.0cm/Cresencio Peak GR.12mmHg Mitral Valve MV E Nytxfelj68.1cm/sMV A Auinjqti15.2cm/sE/A ratio1.8 TDI E/Lateral E'0.0E/Medial E'0.0 Tricuspid Valve TR Peak [id number]/sRAP [id number] Peak Gr.20mmHg [id number] LEFT VENTRICLE The left ventricle is normal size. There is borderline to mild concentric left ventricular hypertrophy. The left ventricular function is normal. The left ventricular ejection fraction is within the normal range. There is normal LV segmental wall motion. The left ventricular diastolic function is normal. RIGHT VENTRICLE The right ventricle is normal size. There is normal right ventricular wall thickness. The right ventricular systolic function is normal. ATRIA The left atrium size is normal. The right atrium size is normal. AORTIC VALVE The aortic valve is normal in structure. No aortic regurgitation is present. There is no aortic valvular stenosis. MITRAL VALVE The mitral valve is normal in structure. There is no mitral valve regurgitation noted. TRICUSPID VALVE There is trace tricuspid regurgitation. There is no pulmonary hypertension. GREAT VESSELS The aortic root is normal in size. The IVC is normal in size and collapses >50% with inspiration. PERICARDIAL EFFUSION There is no pericardial effusion. <Conclusion> The left ventricle is normal size. There is borderline to mild concentric left ventricular hypertrophy. The left ventricular function is normal. The left ventricular ejection fraction is within the normal range. There is normal LV segmental wall motion. The left ventricular diastolic function is normal.
--- NOTE | 2017-03-02 23:04 | CON ---
CARDIOLOGY CONSULTATION HISTORY OF PRESENT ILLNESS: The patient is a 46-year-old -[place] female who is known to have severe spinal canal stenosis. She is a smoker and drinker. She presents because of retrosternal chest pain that is pressure in nature, nonradiating, not associated with diaphoresis. The patient denies any other substance abuse and is unaware of any prior cardiac history. The patient stated that she was diagnosed with cervical spinal canal stenosis, but was followed because the doctor at that time did not take her insurance. The patient does not report any imbalanced gait, urinary or fecal incontinence. The patient does report bilateral arm numbness. SOCIAL HISTORY: Smoker and drinker. MEDICATIONS: Aspirin 81 mg once a day, Lipitor 20 mg once a day, Protonix 40 mg once a day, Zofran 4 mg q.6 hours p.r.n. PHYSICAL EXAMINATION: GENERAL: The patient is a middle-aged female who does not appear to be in any distress. VITAL SIGNS: Blood pressure 152/91, heart rate 61, temperature 98.3, respirations 20. HEENT: Normocephalic. NECK: No JVD. CHEST: Clear. HEART: S1 and S2 regular. EXTREMITIES: No edema. LABORATORY DATA: Hemoglobin, hematocrit, white count, and platelet count are within normal limit. Today's SMA-7 is entirely within normal limits. Two sets of troponins are negative. Triglycerides 214, total cholesterol is 234, HDL cholesterol is 77. PT, PTT, and D-dimer are within normal limits. Cervical spine MRI revealed [id number] multilevel degenerative spondylosis with significant central canal stenosis at C4-C5 and to a lesser degree at C3-C4 levels. Brain MRI, no acute findings. EKG reveals sinus bradycardia, rate of 57. ASSESSMENT: 1. Chest pain. Myocardial infarction is ruled out. 2. Mild sinus bradycardia. 3. Hyperlipidemia. 4. Cervical spinal canal stenosis. 5. Hypertension. RECOMMENDATIONS: Continue current aspirin 81 mg once a day, Lipitor 20 mg once a day. I would review the echocardiography study performed today. Obtain urine for drug screen. Obtain TSH level. Arnold Yañez MD [facility] # [id number]
[2017-03-03] MEDS: Apap-Butalbital-Caffeine 325-50-40mg Tab PO SCH ×2 (02:35→08:49)
[2017-03-03 07:23] VITALS: BP 137/77; TEMP 97.8; O2SAT 99
--- NOTE | 2017-03-03 14:09 | CP.PCM.DIS ---
<Yvonne Soliman - Last Filed: 03/03/17 14:06> Provider - Provider Date of Admission: 03/01/17 10:33 Attending physician: Jenn Avila MD Consults: Neuro - Edy Yañez Cardio Time Spent in preparation of Discharge (in minutes): 45 Diagnosis - Discharge Diagnosis (1) Weakness of left arm Status: Resolved (2) Chest pain Status: Resolved Hospital Course - Lab Results Lab Results: Most Recent Lab Values WBC 5.3 10^3/ul (4.5-11.0) 03/02/17 05:15 RBC 3.97 10^6/uL (3.5-6.1) 03/02/17 05:15 Hgb 12.5 g/dL (12.0-16.0) 03/02/17 05:15 Hct 36.7 % (36.0-48.0) 03/02/17 05:15 MCV 92.4 fl (80.0-105.0) 03/02/17 05:15 MCH 31.5 pg (25.0-35.0) 03/02/17 05:15 MCHC 34.1 g/dl (31.0-37.0) 03/02/17 05:15 RDW 13.4 % (11.5-14.5) 03/02/17 05:15 Plt Count 275 10^3/uL (120.0-450.0) 03/02/17 05:15 MPV 10.4 fl (7.0-11.0) 03/02/17 05:15 Gran % 47.3 % (50.0-68.0) L 03/02/17 05:15 Lymph % (Auto) 44.5 % (22.0-35.0) H 03/02/17 05:15 [place] % (Auto) 6.8 % (1.0-6.0) H 03/02/17 05:15 Eos % (Auto) 0.8 % (1.5-5.0) L 03/02/17 05:15 Baso % (Auto) 0.6 % (0.0-3.0) 03/02/17 05:15 Gran # 2.52 (1.4-6.5) 03/02/17 05:15 Lymph # 2.4 (1.2-3.4) 03/02/17 05:15 [place] # 0.4 (0.1-0.6) 03/02/17 05:15 Eos # 0.0 (0.0-0.7) 03/02/17 05:15 Baso # 0.03 K/mm3 (0.0-2.0) 03/02/17 05:15 PT 10.3 Seconds (9.9-11.8) 03/01/17 09:16 INR 0.95 (0.93-1.08) 03/01/17 09:16 APTT 27.5 Seconds (23.7-30.8) 03/01/17 09:16 D-Dimer, Quantitative 0.19 mg/L FEU (0-0.50) 03/01/17 09:30 Sodium 140 mmol/L (132-148) 03/02/17 05:15 Potassium 3.7 mmol/L (3.6-5.0) 03/02/17 05:15 Chloride 107 mmol/L (95-110) 03/02/17 05:15 Carbon Dioxide 27 mmol/L (21-33) 03/02/17 05:15 Anion Gap 10 (10-20) 03/02/17 05:15 BUN 12 mg/dL (7-21) 03/02/17 05:15 Creatinine 0.7 mg/dL (0.5-1.4) 03/02/17 05:15 Est GFR ( Amer) > 60 03/02/17 05:15 Est GFR (Non-Af Amer) > 60 03/02/17 05:15 Random Glucose 98 mg/dL (70-110) 03/02/17 05:15 Calcium 9.4 mg/dL (8.4-10.5) 03/02/17 05:15 Phosphorus 4.3 mg/dL (2.5-4.5) 03/01/17 09:16 Magnesium 1.7 mg/dL (1.7-2.2) 03/01/17 09:16 Total Bilirubin 0.9 mg/dL (0.2-1.3) 03/02/17 05:15 AST 24 U/L (14-36) 03/02/17 05:15 ALT 32 U/L (7-56) 03/02/17 05:15 Alkaline Phosphatase 59 U/L (38-126) 03/02/17 05:15 Lactate Dehydrogenase 445 U/L (333-699) 03/01/17 09:16 Total Creatine Kinase 101 U/L (35-230) 03/01/17 09:16 Troponin I < 0.01 ng/mL 03/02/17 12:15 Total Protein 6.5 g/dL (5.8-8.3) 03/02/17 05:15 Albumin 3.7 g/dL (3.0-4.8) 03/02/17 05:15 Globulin 2.8 gm/dL 03/02/17 05:15 Albumin/Globulin Ratio 1.3 (1.1-1.8) 03/02/17 05:15 Triglycerides 240 mg/dL (35-160) H 03/02/17 05:15 Cholesterol 234 mg/dL (130-200) H 03/02/17 05:15 LDL Cholesterol Direct 124 mg/dL (0-129) 03/02/17 05:15 HDL Cholesterol 77 mg/dL (29-60) H 03/02/17 05:15 Vitamin B12 430 pg/mL (239-931) 03/02/17 05:15 TSH 3rd Generation 1.29 mIU/mL (0.46-4.68) 03/02/17 13:25 Urine Color Yellow (YELLOW) 03/01/17 09:16 Urine Appearance Clear (CLEAR) 03/01/17 09:16 Urine pH 6.0 (4.7-8.0) 03/01/17 09:16 Ur Specific [place] >= 1.030 (1.005-1.035) 03/01/17 09:16 Urine Protein Negative mg/dL (<30 mg/dL) 03/01/17 09:16 Urine Glucose (UA) Negative mg/dL (NEGATIVE) 03/01/17 09:16 Urine Ketones Negative mg/dL (NEGATIVE) 03/01/17 09:16 Urine Blood Trace-intact (NEGATIVE) H 03/01/17 09:16 Urine Nitrate Negative (NEGATIVE) 03/01/17 09:16 Urine Bilirubin Negative (NEGATIVE) 03/01/17 09:16 Urine Urobilinogen 0.2 E.U./dL (<1 E.U./dL) 03/01/17 09:16 Ur Leukocyte Esterase Negative Neeru/uL (NEGATIVE) 03/01/17 09:16 Urine RBC 0 - 2 /hpf (0-2) 03/01/17 09:16 Urine WBC 1 - 3 /hpf (0-6) 03/01/17 09:16 Ur Epithelial Cells 6 - 8 /hpf (0-5) 03/01/17 09:16 Urine Bacteria Trace (NEG) 03/01/17 09:16 - Hospital Course Hospital Course: Pt is a 46 year old female with PMH significant for GERD and C4-C5 stenosis, who presented for evaluation of chest pain and dyspnea. Pt reported that she had had 2-3 weeks of intermittent chest pain, however, on the morning of her admission, she had 2 brief episodes of sharp, severe chest pain associated with dyspnea, of which both subsided within a few minutes. Pt had also had nausea, vomiting, and diarrhea that morning. Pt additionally reported few month history of paresthesias to the right arm and leg, sometimes associated with some weakness, causing her to fall a few times. She had complaints of right sided headache radiating down to the neck. In the ED, pt had a CT of the head and CXR, which were WNL. Patient was admitted for evaluation of chest pain and right sided weakness. During her admission, pt had no additional episodes of chest pain, dyspnea, vomiting, or diarrhea. v Serial cardiac enzymes were negative. Prior records were reviewed revealing patient had an MRI of the cervical spine showing C4-C5 stenosis. Repeat MRI was done showing similar C4-C5 stenosis, and also some mild C3-C4 stenosis, brain MRI was negative. Retail Advertising Sales Manager was consulted, who requested an echocardiogram, which was WNL, and cleared the patient. Neurologist was also consulted, who requested Rx for neurontin and outpatient follow up. Patient additionally had cholesterol panel showing hypercholesterolemia and hypertriglyceridemia. At the time of discharge, patient reports feeling better. Headache is improved , patient is hungry and tolerating PO. She denies further chest pain, dyspnea, visual or hearing changes, abdominal pain, N/V/D, and is able to walk around on her own. Discussed with patient need for dietary modifications to reduce cholesterol. She will go home with ASA, Lipitor, and Gapapentin. She will follow up with her PMD, Cardiology, and Neurology within 1 week. She expresses understanding and is comfortable with discharge plan and medications Patient seen, examined, and reviewed with Attending Yvonne Sloiman PGY-1 - Date & Time of H&P Date of H&P: 03/03/17 Time of H&P: 08:00 Discharge Exam - Head Exam Head Exam: ATRAUMATIC, NORMOCEPHALIC - Eye Exam Eye Exam: EOMI, Normal appearance, PERRL - ENT Exam ENT Exam: Mucous Membranes Moist - Respiratory Exam Respiratory Exam: Clear to PA & Lateral - Cardiovascular Exam Cardiovascular Exam: RRR, +S1, +S2 - GI/Abdominal Exam GI & Abdominal Exam: Soft. absent: Tenderness - Extremities Exam Additional comments: no pedal edema - Neurological Exam Neurological exam: Alert, CN II-XII Intact, Normal Gait, Oriented x3, Reflexes Normal - Psychiatric Exam Psychiatric exam: Normal Affect, Normal Mood - Skin Skin Exam: Dry, Normal Color, Warm Discharge Plan - Discharge Medications Prescriptions: Aspirin [Aspirin Chewable] 81 mg PO DAILY #30 chew Atorvastatin [Lipitor] 20 mg PO DIN #30 tab Gabapentin [Neurontin] 100 mg PO TID #60 cap - Follow Up Plan Condition: FAIR Disposition: HOME/ ROUTINE Instructions: Transient Ischemic Attack (DC), Chest Pain (ED) Additional Instructions: follow up with primary care doctor in 3-5 days follow up with cardiology in 1 week follow up with neurology in 1 week <Jenn Avila MD - Last Filed: 03/03/17 14:45> Provider - Provider Date of Admission: 03/01/17 10:33 Attending physician: Jenn Avila MD Hospital Course - Lab Results Lab Results: Most Recent Lab Values WBC 5.3 10^3/ul (4.5-11.0) 03/02/17 05:15 RBC 3.97 10^6/uL (3.5-6.1) 03/02/17 05:15 Hgb 12.5 g/dL (12.0-16.0) 03/02/17 05:15 Hct 36.7 % (36.0-48.0) 03/02/17 05:15 MCV 92.4 fl (80.0-105.0) 03/02/17 05:15 MCH 31.5 pg (25.0-35.0) 03/02/17 05:15 MCHC 34.1 g/dl (31.0-37.0) 03/02/17 05:15 RDW 13.4 % (11.5-14.5) 03/02/17 05:15 Plt Count 275 10^3/uL (120.0-450.0) 03/02/17 05:15 MPV 10.4 fl (7.0-11.0) 03/02/17 05:15 Gran % 47.3 % (50.0-68.0) L 03/02/17 05:15 Lymph % (Auto) 44.5 % (22.0-35.0) H 03/02/17 05:15 [place] % (Auto) 6.8 % (1.0-6.0) H 03/02/17 05:15 Eos % (Auto) 0.8 % (1.5-5.0) L 03/02/17 05:15 Baso % (Auto) 0.6 % (0.0-3.0) 03/02/17 05:15 Gran # 2.52 (1.4-6.5) 03/02/17 05:15 Lymph # 2.4 (1.2-3.4) 03/02/17 05:15 [place] # 0.4 (0.1-0.6) 03/02/17 05:15 Eos # 0.0 (0.0-0.7) 03/02/17 05:15 Baso # 0.03 K/mm3 (0.0-2.0) 03/02/17 05:15 PT 10.3 Seconds (9.9-11.8) 03/01/17 09:16 INR 0.95 (0.93-1.08) 03/01/17 09:16 APTT 27.5 Seconds (23.7-30.8) 03/01/17 09:16 D-Dimer, Quantitative 0.19 mg/L FEU (0-0.50) 03/01/17 09:30 Sodium 140 mmol/L (132-148) 03/02/17 05:15 Potassium 3.7 mmol/L (3.6-5.0) 03/02/17 05:15 Chloride 107 mmol/L (95-110) 03/02/17 05:15 Carbon Dioxide 27 mmol/L (21-33) 03/02/17 05:15 Anion Gap 10 (10-20) 03/02/17 05:15 BUN 12 mg/dL (7-21) 03/02/17 05:15 Creatinine 0.7 mg/dL (0.5-1.4) 03/02/17 05:15 Est GFR ( Amer) > 60 03/02/17 05:15 Est GFR (Non-Af Amer) > 60 03/02/17 05:15 Random Glucose 98 mg/dL (70-110) 03/02/17 05:15 Calcium 9.4 mg/dL (8.4-10.5) 03/02/17 05:15 Phosphorus 4.3 mg/dL (2.5-4.5) 03/01/17 09:16 Magnesium 1.7 mg/dL (1.7-2.2) 03/01/17 09:16 Total Bilirubin 0.9 mg/dL (0.2-1.3) 03/02/17 05:15 AST 24 U/L (14-36) 03/02/17 05:15 ALT 32 U/L (7-56) 03/02/17 05:15 Alkaline Phosphatase 59 U/L (38-126) 03/02/17 05:15 Lactate Dehydrogenase 445 U/L (333-699) 03/01/17 09:16 Total Creatine Kinase 101 U/L (35-230) 03/01/17 09:16 Troponin I < 0.01 ng/mL 03/02/17 12:15 Total Protein 6.5 g/dL (5.8-8.3) 03/02/17 05:15 Albumin 3.7 g/dL (3.0-4.8) 03/02/17 05:15 Globulin 2.8 gm/dL 03/02/17 05:15 Albumin/Globulin Ratio 1.3 (1.1-1.8) 03/02/17 05:15 Triglycerides 240 mg/dL (35-160) H 03/02/17 05:15 Cholesterol 234 mg/dL (130-200) H 03/02/17 05:15 LDL Cholesterol Direct 124 mg/dL (0-129) 03/02/17 05:15 HDL Cholesterol 77 mg/dL (29-60) H 03/02/17 05:15 Vitamin B12 430 pg/mL (239-931) 03/02/17 05:15 TSH 3rd Generation 1.29 mIU/mL (0.46-4.68) 03/02/17 13:25 Urine Color Yellow (YELLOW) 03/01/17 09:16 Urine Appearance Clear (CLEAR) 03/01/17 09:16 Urine pH 6.0 (4.7-8.0) 03/01/17 09:16 Ur Specific [place] >= 1.030 (1.005-1.035) 03/01/17 09:16 Urine Protein Negative mg/dL (<30 mg/dL) 03/01/17 09:16 Urine Glucose (UA) Negative mg/dL (NEGATIVE) 03/01/17 09:16 Urine Ketones Negative mg/dL (NEGATIVE) 03/01/17 09:16 Urine Blood Trace-intact (NEGATIVE) H 03/01/17 09:16 Urine Nitrate Negative (NEGATIVE) 03/01/17 09:16 Urine Bilirubin Negative (NEGATIVE) 03/01/17 09:16 Urine Urobilinogen 0.2 E.U./dL (<1 E.U./dL) 03/01/17 09:16 Ur Leukocyte Esterase Negative Neeru/uL (NEGATIVE) 03/01/17 09:16 Urine RBC 0 - 2 /hpf (0-2) 03/01/17 09:16 Urine WBC 1 - 3 /hpf (0-6) 03/01/17 09:16 Ur Epithelial Cells 6 - 8 /hpf (0-5) 03/01/17 09:16 Urine Bacteria Trace (NEG) 03/01/17 09:16 Attending/Attestation - Attestation I have personally seen and examined this patient.: Yes I have fully participated in the care of the patient.: Yes I have reviewed all pertinent clinical information, including history, physical exam and plan: Yes Notes (Text): 03/03/17 14:43 Patient was seen and examined with medical recruiter. Agreed with resident assessment and plan. 46 year old female with PMH significant for GERD and C4-C5 stenosis,chronic smoking, and non compliance is admitted with chest pain, EKG is negative for ischemic changes, had chest wall tenderness.Etiology is likely non cardiac.Telemetry is unremarkable.Serial troponins are normal.Echo showed normal systolic function .Patient is pain free.She can be discharged home and will follow up with PCP and cardiology. Patient has mild right leg weakness 4/5, which as per patient it is chronic.She is ambulatory with out any assistance.MRI of Brain is normal.MRI c spine showed c4-C5 mild spinal stenosis which is stable.Patient is ambulatory, has been started on Neurontin by Neurology. Management plan was discussed in detail with patient Education was provided.
[2017-03-03 14:19] VITALS: PULSE 44
== END 2017-03-03 14:29 | disposition home or self-care (01) ==
LOC: ED 08:37 → ERH 10:33 → 3RSO 12:18 → UNDODISOB 03-02 19:22
PROVIDERS: ADMIT Hospitalist; ATTEND Internal Medicine
DX: R07.9 Chest pain, unspecified (principal); M48.02 Spinal stenosis, cervical region; M54.12 Radiculopathy, cervical region; E78.00 Pure hypercholesterolemia, unspecified; Z80.0 Family history of malignant neoplasm of digestive organs; Z80.1 Family history of malignant neoplasm of trachea, bronchus and lung; Z83.3 Family history of diabetes mellitus; Z82.49 Family history of ischemic heart disease and other diseases of the circulatory system; Z82.0 Family history of epilepsy and other diseases of the nervous system; Z82.3 Family history of stroke; E78.1 Pure hyperglyceridemia; E78.5 Hyperlipidemia, unspecified; F17.210 Nicotine dependence, cigarettes, uncomplicated; I10 Essential (primary) hypertension; K21.9 Gastro-esophageal reflux disease without esophagitis; M47.9 Spondylosis, unspecified; Z86.69 Personal history of other diseases of the nervous system and sense organs; Z87.440 Personal history of urinary (tract) infections; Z91.19 Patient's noncompliance with other medical treatment and regimen; R19.7 Diarrhea, unspecified; D64.9 Anemia, unspecified; Z87.81 Personal history of (healed) traumatic fracture; K29.70 Gastritis, unspecified, without bleeding; F32.89 Other specified depressive episodes; R00.1 Bradycardia, unspecified; R40.2412 Glasgow coma scale score 13-15, at arrival to emergency department; R53.1 Weakness; R11.2 Nausea with vomiting, unspecified; R51 Headache
CPT/HCPCS: 36415; 70450; 70551; 71010; 72141; 80053; 80061; 81001; 82550; 82607; 83615; 83735; 84100; 84378; 84425; 84443; 84484; 85025; 85378; 85610; 85730; 93005; 93306; 97116; 97162; 97530; 99285; G0378; G8978; G8979; J7040

== ENCOUNTER 2017-07-21 09:44 | Emergency (ER) | payer MEDICAID, OTHER ==
[2017-07-21 09:45] VITALS: BMI 20.8
[2017-07-21 11:06] LABS: BASO # 0.04 K/mm3 (0.0-2.0); BASO % 0.6 % (0.0-3.0); EOS % 0.4 % (1.5-5.0); GRAN # 4.27 (1.4-6.5); HEMOGLOBIN 12.9 g/dL (12.0-16.0); LYMPH % 29.2 % (22.0-35.0); MEAN CELL VOLUME 94.4 fl (80.0-105.0); MEAN CORPUSCULAR HEMOGLOBIN 31.6 pg (25.0-35.0); MEAN CORPUSCULAR HGB CONC 33.5 g/dl (31.0-37.0); MEAN PLATELET VOLUME 10.9 fl (7.0-11.0); MONO # 0.5 (0.1-0.6); MONO % 6.8 % (1.0-6.0); RBC 4.08 10^6/uL (3.5-6.1); RED CELL DISTRIBUTION WIDTH 13.4 % (11.5-14.5); WHITE BLOOD COUNT 6.8 10^3/ul (4.5-11.0)
[2017-07-21 11:07] LABS: URINE BILIRUBIN NEGATIVE (NEGATIVE); URINE BLOOD TRACE-INTACT (NEGATIVE); URINE GLUCOSE (UA) NEGATIVE (NEGATIVE); URINE LEUKOCYTE ESTERASE NEGATIVE Leu/uL (NEGATIVE); URINE NITRATE NEGATIVE (NEGATIVE); URINE PROTEIN NEGATIVE mg/dL (<30 mg/dL); URINE UROBILINOGEN 0.2 E.U./dL (<1 E.U./dL)
[2017-07-21 11:15] LABS: ALB/GLOB RATIO 1.5 (1.1-1.8); ALT/SGPT 34 U/L (7-56); AST/SGOT 30 U/L (14-36); BLOOD UREA NITROGEN 14 mg/dL (7-21); CALCIUM 9.8 mg/dL (8.4-10.5); GFR AFRICAN-AMERICAN > 60; GFR NON-AFRICAN AMERICAN > 60; MAGNESIUM 1.8 mg/dL (1.7-2.2)
--- NOTE | 2017-07-21 11:16 | ED PDOC ---
Arrival/HPI - General Chief Complaint: Chest Pain Time Seen by Provider: 07/21/17 10:01 Historian: Patient - History of Present Illness Narrative History of Present Illness (Text): 07/21/17 10:42 A 46 year old female, whose past medical history includes hyperlipidemia, presents to the emergency department complaining of cough and chest pain. Patient reports waking up worsening symptoms. Chest pain is with cough and describesd as tightness and muscle sore. Patient notes also experiencing appetite changes for 5 days, dizziness, fever (had 4 days ago). Patient mentions no other complaints at this time. PMD: Dr. Binu Bentley Past Medical History - Provider Review Nursing Documentation Reviewed: Yes - Past History Past History: No Previous - Infectious Disease Hx of Infectious Diseases: None - Tetanus Immunization Tetanus Immunization: Unknown - Reproductive Menopause: No - Past Medical History Past Medical History: No Previous (High cholesterol on the last primary care doctor visit) - Cardiac Hx Cardiac Disorders: Yes - Pulmonary Hx Respiratory Disorders: Yes (SMOKES 6 CIGARETTES EVERY NOW AND THEN.) - Neurological Hx Neurological Disorder: Yes Hx Dizziness: Yes Hx Seizures: Yes (1 time 31 years ago) - HEENT Hx HEENT Disorder: No - Renal Hx Renal Disorder: No - Endocrine/Metabolic Hx Endocrine Disorders: No - Hematological/Oncological Hx Blood Disorders: Yes Hx Anemia: Yes (HAD BLOOD TRANSFUSION 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 1983) - Integumentary Hx Dermatological Disorder: No - Musculoskeletal/Rheumatological Hx Musculoskeletal Disorders: Yes (CERVICAL RADICULOPATHY) Hx Falls: No Hx Fractures: Yes (Broken Foot and Ankle in the past) - Gastrointestinal Hx Gastrointestinal Disorders: Yes Hx Gastroesophageal Reflux: Yes Other/Comment: Gastritis - Genitourinary/Gynecological Hx Genitourinary Disorders: Yes (C SECTION X 3) Hx Urinary Tract Infection: Yes - Psychiatric Hx Psychophysiologic Disorder: Yes Hx Depression: Yes Hx Emotional Abuse: No Hx Physical Abuse: No Hx Sexual Abuse: No Hx Substance Use: No - Surgical History Other/Comment: 3 C-sections - Anesthesia Hx Anesthesia: Yes Hx Anesthesia Reactions: No Hx Malignant Hyperthermia: No - Suicidal Assessment Feels Threatened In Home Enviroment: No Family/Social History - Physician Review Nursing Documentation Reviewed: Yes Family/Social History: No Known Family HX Smoking Status: Current Some Days Smoker Hx Alcohol Use: Yes (COORS LIGHT WHEN SHE SMOKES) Hx Substance Use: No Hx Substance Use Treatment: No Allergies/Home Meds Allergies/Adverse Reactions: Allergies No Known Allergies Allergy (Verified 07/21/17 09:58) Home Medications: Home Meds Medication Instructions Recorded Confirmed Amoxicillin/Clavulanate [Augmentin 1 tab PO BID 07/21/17 07/21/17 875 MG-125 MG] Atorvastatin [Lipitor] 10 mg PO DIN 07/21/17 07/21/17 Review of Systems - Physician Review All systems were reviewed & negative as marked: Yes - Review of Systems Respiratory: Cough (with phlegm) Cardiovascular: Chest Pain Gastrointestinal: Appetite Changes Genitourinary Female: Dysuria Neurological: Dizziness Physical Exam Vital Signs Reviewed: Yes Temperature: Afebrile Blood Pressure: Normal (115/76) Pulse: Regular (80) Respiratory Rate: Normal (16; 99%RA) Appearance: Positive for: Well-Appearing, Non-Toxic, Comfortable Pain Distress: None Mental Status: Positive for: Alert and Oriented X 3 - Systems Exam Head: Present: Atraumatic, Normocephalic Pupils: Present: PERRL Extroacular Muscles: Present: EOMI Conjunctiva: Present: Normal Mouth: Present: Moist Mucous Membranes Neck: Present: Normal Range of Motion Respiratory/Chest: Present: Clear to Auscultation, Good Air Exchange, Other ( chest wall tenderness). No: Respiratory Distress, Accessory Muscle Use Cardiovascular: Present: Regular Rate and Rhythm, Normal S1, S2. No: Murmurs Abdomen: Present: Normal Bowel Sounds. No: Tenderness, Distention, Peritoneal Signs Back: Present: Normal Inspection Upper Extremity: Present: Normal Inspection. No: Cyanosis, Edema Lower Extremity: Present: Normal Inspection. No: Edema, Swelling (no calf swelling) Neurological: Present: GCS=15, CN II-XII Intact, Speech Normal Skin: Present: Warm, Dry, Normal Color. No: Rashes Psychiatric: Present: Alert, Oriented x 3, Normal Insight, Normal Concentration Medical Decision Making ED Course and Treatment: 07/21/17 10:46 Impression: 46 year old female with chest pain. Physical exam shows chest wall tenderness. Differential Diagnosis included but are not limited to: Bronchitis vs MSK vs. Cardiac Plan: -- EKG -- Chest X-ray -- Labs -- Toradol -- Urine Test -- Rapid Flu Test -- Urinalysis -- Reassess and disposition Prior Visits: Notes and results from previous visits were reviewed. Patient was last seen in the emergency department on 03/01/2017 for left-side chest pain. Patient was admitted. Progress Notes: Patient improved in the ED. She was advised to follow up with her primary care doctor. She was advised to return to the ED if symptoms worsen or any other concern. - Lab Interpretations Lab Results: 07/21/17 10:46 07/21/17 10:46 Lab Results 07/21/17 10:46: Influenza Typ A,B (EIA) Negative for flu a/b 07/21/17 10:46: Sodium 141, Potassium 3.9, Chloride 108 H, Carbon Dioxide 23, Anion Gap 13, BUN 14, Creatinine 0.8, Est GFR ( Amer) > 60, Est GFR (Non- Af Amer) > 60, Random Glucose 94, Calcium 9.8, Magnesium 1.8, Total Bilirubin 0.6, AST 30, ALT 34, Alkaline Phosphatase 52, Lactate Dehydrogenase 496, Total Creatine Kinase 104, Troponin I < 0.01, Total Protein 6.7, Albumin 4.0, Globulin 2.7, Albumin/Globulin Ratio 1.5 07/21/17 10:46: WBC 6.8 D, RBC 4.08, Hgb 12.9, Hct 38.5, MCV 94.4, MCH 31.6, MCHC 33.5, RDW 13.4, Plt Count 252, MPV 10.9, Gran % 63.0, Lymph % (Auto) 29.2, [place] % (Auto) 6.8 H, Eos % (Auto) 0.4 L, Baso % (Auto) 0.6, Gran # 4.27, Lymph # (Auto) 2.0, [place] # (Auto) 0.5, Eos # (Auto) 0.0, Baso # (Auto) 0.04 07/21/17 10:30: Urine Color Yellow, Urine Appearance Clear, Urine pH 6.0, Ur Specific [place] 1.025, Urine Protein Negative, Urine Glucose (UA) Negative, Urine Ketones Negative, Urine Blood Trace-intact H, Urine Nitrate Negative, Urine Bilirubin Negative, Urine Urobilinogen 0.2, Ur Leukocyte Esterase Negative , Urine RBC 0 - 2, Urine WBC 1 - 3, Ur Epithelial Cells 6 - 8, Urine Other Trichomonas - RAD Interpretation Radiology Orders: 07/21/17 10:27 CHEST PORTABLE [RAD] Stat - Medication Orders Current Medication Orders: Discontinued Medications Ketorolac Tromethamine (Toradol) 30 mg IVP STAT STA Stop: 07/21/17 10:28 Last Admin: 07/21/17 10:46 Dose: 30 mg MAR Pain Assessment Document 07/21/17 10:46 SE (Rec: 07/21/17 10:47 SE [id number]) Pain Reassessment Is this a pain reassessment? No Sleep Is patient sleeping during reassessment? No Presence of Pain Presence of Pain Yes Pain Scale Used Pain Scale Used Numeric Location Pain Location Body Site Chest IVP Administration Document 07/21/17 10:46 SE (Rec: 07/21/17 10:47 SE [id number]) Charges for Administration # of IVP Administrations 1 Metronidazole (Flagyl) 2,000 mg PO STAT STA PRN Reason: Protocol Stop: 07/21/17 11:39 Last Admin: 07/21/17 11:47 Dose: 2,000 mg - Scribe Statement The provider has reviewed the documentation as recorded by the Janine Zambrano Provider Scribe Attestation: All medical record entries made by the Janine were at my direction and personally dictated by me. I have reviewed the chart and agree that the record accurately reflects my personal performance of the history, physical exam, medical decision making, and the department course for this patient. I have also personally directed, reviewed, and agree with the discharge instructions and disposition. Disposition/Present on Arrival - Present on Arrival Any Indicators Present on Arrival: No History of DVT/PE: No History of Uncontrolled Diabetes: No Urinary Catheter: No History of Decub. Ulcer: No History Surgical Site Infection Following: None - Disposition Have Diagnosis and Disposition been Completed?: Yes Diagnosis: Bronchitis, Trichomonosis, Chest pain Disposition: HOME/ ROUTINE Disposition Time: 11:53 Patient Plan: Discharge Condition: IMPROVED Discharge Instructions (ExitCare): Chest Pain (ED), Trichomoniasis (ED), Acute Bronchitis (ED) Additional Instructions: Arnaud, thank you for letting us take care of you today. Your provider was Dr. Hubbard You were treated for Chest Pain, Bronchitis, Viral Syndrome, Trichomonis. The emergency medical care you received today was directed at your acute symptoms. If you were prescribed any medication, please fill it and take as directed. It may take several days for your symptoms to resolve. Return to the Emergency Department if your symptoms worsen, do not improve, or if you have any other problems. Please contact your doctor or call one of the physicians/clinics you have been referred to that are listed on the Patient Visit Information form that is included in your discharge packet. Bring any paperwork you were given at discharge with you along with any medications you are taking to your follow up visit. Our treatment cannot replace ongoing medical care by a primary care provider (PCP) outside of the emergency department. Thank you for allowing the [facility] team to be part of your care today. If you had an X-Ray or CT scan: A Radiologist will review the ED reading if any change in treatment is needed we will contact you. If you had a blood, urine, or wound culture: It will take several days for the results, if any change in treatment is needed we will contact you. If you had an STI test: It will take 48 hours for the results. Please call after 1 week if you have not heard back. Prescriptions: Ibuprofen [Motrin] 600 mg PO Q6 PRN #30 tab PRN Reason: Pain, Moderate (4-7) Promethazine/Codeine [Phenergan/Codeine Oral Syrup] 5 ml PO Q6 PRN #1 PRN Reason: Cough Referrals: Binu Bentley Jr., MD [Primary Care Provider] - Follow up with primary Forms: [employer] (Tajik), WORK NOTE
[2017-07-21 11:18] LABS: URINE APPEARANCE CLEAR (CLEAR); URINE COLOR YELLOW (YELLOW)
[2017-07-21 11:26] LABS: TROPONIN I < 0.01 ng/mL
[2017-07-21 11:31] LABS: URINE RBC 0 - 2 /hpf (0-2)
--- NOTE | 2017-07-21 12:24 | RAD ---
HISTORY: Chest pain COMPARISON: 03/01/2017 FINDINGS: LUNGS: No active pulmonary disease. PLEURA: No significant pleural effusion identified, no pneumothorax apparent. CARDIOVASCULAR: Normal. OSSEOUS STRUCTURES: No significant abnormalities. VISUALIZED UPPER ABDOMEN: Normal. OTHER FINDINGS: None. IMPRESSION: No active disease. No significant interval change compared to the prior examination(s).
--- NOTE | 2017-07-21 15:58 | CARD ---
APPROVED REPORT EKG Measurement Heart [id number] <Conclusion> Sinus bradycardia Otherwise normal ECG
== END 2017-07-21 11:53 | disposition home or self-care (01) ==
LOC: ED 09:44
DX: J40 Bronchitis, not specified as acute or chronic (principal); A59.9 Trichomoniasis, unspecified; R07.9 Chest pain, unspecified; E78.5 Hyperlipidemia, unspecified
CPT/HCPCS: 71045; 80053; 81001; 82550; 83615; 83735; 84484; 85025; 87804; 93005; 96374; 99284; J1885

== ENCOUNTER 2017-07-31 13:22 | Emergency (ER) | payer MEDICAID ==
[2017-07-31 13:54] VITALS: RESP 16; TEMP 98.7; O2SAT 98; BMI 21.1
[2017-07-31] MEDS ORDERED: Sodium Chloride 0.9% 1,000 ML IV STA (14:17)
[2017-07-31 15:16] LABS: BASO # 0.04 K/mm3 (0.0-2.0); BASO % 0.5 % (0.0-3.0); EOS % 0.5 % (1.5-5.0); GRAN # 5.31 (1.4-6.5); GRAN % 62.7 % (50.0-68.0); HEMOGLOBIN 12.9 g/dL (12.0-16.0); LYMPH # 2.5 (1.2-3.4); LYMPH % 29.1 % (22.0-35.0); MEAN CELL VOLUME 94.1 fl (80.0-105.0); MEAN CORPUSCULAR HEMOGLOBIN 31.8 pg (25.0-35.0); MEAN CORPUSCULAR HGB CONC 33.8 g/dl (31.0-37.0); MONO # 0.6 (0.1-0.6); MONO % 7.2 % (1.0-6.0); RBC 4.06 10^6/uL (3.5-6.1); RED CELL DISTRIBUTION WIDTH 13.5 % (11.5-14.5); WHITE BLOOD COUNT 8.5 10^3/ul (4.5-11.0)
[2017-07-31 15:26] LABS: INR 0.97 (0.93-1.08); PARTIAL THROMBOPLASTIN TIME 27.7 Seconds (25.1-36.5)
[2017-07-31 15:28] LABS: ALB/GLOB RATIO 1.7 (1.1-1.8); ALBUMIN 4.3 g/dL (3.0-4.8); ALT/SGPT 39 U/L (7-56); AST/SGOT 31 U/L (14-36); BLOOD UREA NITROGEN 12 mg/dL (7-21); CALCIUM 10.4 mg/dL (8.4-10.5); GFR AFRICAN-AMERICAN > 60; GFR NON-AFRICAN AMERICAN > 60; LIPASE 858 U/L (23-300)
[2017-07-31 15:48] LABS: URINE BILIRUBIN NEGATIVE (NEGATIVE); URINE BLOOD TRACE-INTACT (NEGATIVE); URINE GLUCOSE (UA) NEGATIVE (NEGATIVE); URINE LEUKOCYTE ESTERASE NEGATIVE Leu/uL (NEGATIVE); URINE NITRATE NEGATIVE (NEGATIVE); URINE PROTEIN NEGATIVE mg/dL (<30 mg/dL); URINE UROBILINOGEN 0.2 E.U./dL (<1 E.U./dL)
[2017-07-31 15:52] LABS: URINE APPEARANCE CLEAR (CLEAR); URINE COLOR YELLOW (YELLOW)
[2017-07-31 15:53] LABS: URINE BACTERIA MOD (NEG); URINE WBC 0 - 2 /hpf (0-6)
--- NOTE | 2017-07-31 20:05 | ED PDOC ---
Arrival/HPI - General Chief Complaint: Flu-like Symptoms Time Seen by Provider: 07/31/17 14:11 Historian: Patient - History of Present Illness Narrative History of Present Illness (Text): 07/31/17 19:58 46yo female with no PMHx who present with complaint of abdominal pain, nausea and vomiting x few days. Pt states she was treated for Trichomoniasis on the 7th of this month here. States she has been unable to keep down anything. She denies diarrhea, constipation, fever, chills, cough, melena, hematemesis, any other complaint. Notes that her friend was also sick with similar symptoms. Past Medical History - Provider Review Nursing Documentation Reviewed: Yes - Past History Past History: No Previous - Infectious Disease Hx of Infectious Diseases: None - Tetanus Immunization Tetanus Immunization: Unknown - Past Medical History Past Medical History: No Previous (High cholesterol on the last primary care doctor visit) - Cardiac Hx Cardiac Disorders: Yes - Pulmonary Hx Respiratory Disorders: Yes (SMOKES 6 CIGARETTES EVERY NOW AND THEN.) - Neurological Hx Neurological Disorder: Yes Hx Dizziness: Yes Hx Seizures: Yes (1 time 31 years ago) - HEENT Hx HEENT Disorder: No - Renal Hx Renal Disorder: No - Endocrine/Metabolic Hx Endocrine Disorders: No - Hematological/Oncological Hx Blood Disorders: Yes Hx Anemia: Yes (HAD BLOOD TRANSFUSION 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 1983) - Integumentary Hx Dermatological Disorder: No - Musculoskeletal/Rheumatological Hx Musculoskeletal Disorders: Yes (CERVICAL RADICULOPATHY) Hx Falls: No Hx Fractures: Yes (Broken Foot and Ankle in the past) - Gastrointestinal Hx Gastrointestinal Disorders: Yes Hx Gastroesophageal Reflux: Yes Other/Comment: Gastritis - Genitourinary/Gynecological Hx Genitourinary Disorders: Yes (C SECTION X 3) Hx Urinary Tract Infection: Yes - Psychiatric Hx Psychophysiologic Disorder: Yes Hx Depression: Yes Hx Emotional Abuse: No Hx Physical Abuse: No Hx Sexual Abuse: No Hx Substance Use: No - Surgical History Other/Comment: 3 C-sections - Anesthesia Hx Anesthesia: Yes Hx Anesthesia Reactions: No Hx Malignant Hyperthermia: No - Suicidal Assessment Feels Threatened In Home Enviroment: No Family/Social History - Physician Review Nursing Documentation Reviewed: Yes Family/Social History: Unknown Family HX Smoking Status: Current Some Days Smoker Hx Alcohol Use: Yes (COORS LIGHT WHEN SHE SMOKES) Hx Substance Use: No Hx Substance Use Treatment: No Allergies/Home Meds Allergies/Adverse Reactions: Allergies No Known Allergies Allergy (Verified 07/21/17 09:58) Home Medications: Home Meds Medication Instructions Recorded Confirmed Amoxicillin/Clavulanate [Augmentin 1 tab PO BID 07/21/17 07/31/17 875 MG-125 MG] Atorvastatin [Lipitor] 10 mg PO DIN 07/21/17 07/31/17 Review of Systems - Physician Review All systems were reviewed & negative as marked: Yes - Review of Systems Constitutional: Normal Eyes: Normal ENT: Normal Respiratory: Normal Cardiovascular: Normal Gastrointestinal: Abdominal Pain, Nausea, Vomiting. absent: Constipation, Diarrhea, Hematochezia, Hematemesis Genitourinary Female: Normal Musculoskeletal: Normal Skin: Normal Neurological: Normal Endocrine: Normal Hemo/Lymphatic: Normal Psychiatric: Normal Physical Exam Vital Signs Reviewed: Yes Vital Signs Temp Pulse Resp BP Pulse Ox 07/31/17 19:30 65 16 127/80 98 07/31/17 13:47 98.7 F 62 16 123/79 98 Temperature: Afebrile Blood Pressure: Normal Pulse: Regular Respiratory Rate: Normal Appearance: Positive for: Well-Appearing, Non-Toxic, Comfortable Pain Distress: None Mental Status: Positive for: Alert and Oriented X 3 - Systems Exam Head: Present: Atraumatic, Normocephalic Pupils: Present: PERRL Extroacular Muscles: Present: EOMI Conjunctiva: Present: Normal Mouth: Present: Moist Mucous Membranes Neck: Present: Normal Range of Motion Respiratory/Chest: Present: Clear to Auscultation, Good Air Exchange. No: Respiratory Distress, Accessory Muscle Use Cardiovascular: Present: Regular Rate and Rhythm, Normal S1, S2. No: Murmurs Abdomen: Present: Tenderness (Lower abdominal tenderness), Normal Bowel Sounds, Other (soft). No: Distention, Peritoneal Signs, Rebound, Guarding, McBurney's Point Tender, Rovsing's Sign Present Back: Present: Normal Inspection Upper Extremity: Present: Normal Inspection. No: Cyanosis, Edema Lower Extremity: Present: Normal Inspection. No: Edema Neurological: Present: GCS=15, CN II-XII Intact, Speech Normal Skin: Present: Warm, Dry, Normal Color. No: Rashes Psychiatric: Present: Alert, Oriented x 3, Normal Insight, Normal Concentration Medical Decision Making ED Course and Treatment: 08/01/17 00:51 Pt notes her pain improved in ED with medication. Elevated Lipase was noted. Pt paulo denies epigastric or RUQ abdominal pain. States her pain resolved. She reports history of alcohol abuse months ago. Lab result was DW the pt. A copy of the elevated lipase was given to the pt and she was instructed to f/u with her PMD for further outpt evaluation. She was DC home with pepcid and zofran. Advised to follow BLAND diet. - Lab Interpretations Lab Results: 07/31/17 15:05 07/31/17 15:05 Lab Results 07/31/17 17:00: Beta HCG, Quant < 2.39 07/31/17 15:15: Urine Color Yellow, Urine Appearance Clear, Urine pH 6.0, Ur Specific [place] >= 1.030, Urine Protein Negative, Urine Glucose (UA) Negative, Urine Ketones 15 H, Urine Blood Trace-intact H, Urine Nitrate Negative, Urine Bilirubin Negative, Urine Urobilinogen 0.2, Ur Leukocyte Esterase Negative, Urine RBC 1 - 3, Urine WBC 0 - 2, Ur Epithelial Cells 4 - 5, Urine Bacteria Mod 07/31/17 15:05: Sodium 143, Potassium 4.0, Chloride 106, Carbon Dioxide 27, Anion Gap 14, BUN 12, Creatinine 0.7, Est GFR ( Amer) > 60, Est GFR (Non- Af Amer) > 60, Random Glucose 80, Calcium 10.4, Total Bilirubin 0.5, AST 31, ALT 39, Alkaline Phosphatase 52, Total Protein 6.8, Albumin 4.3, Globulin 2.5, Albumin/Globulin Ratio 1.7, Lipase 858 H 07/31/17 15:05: PT 11.0, INR 0.97, APTT 27.7 07/31/17 15:05: WBC 8.5 D, RBC 4.06, Hgb 12.9, Hct 38.2, MCV 94.1, MCH 31.8, MCHC 33.8, RDW 13.5, Plt Count 293, MPV 11.0, Gran % 62.7, Lymph % (Auto) 29.1, [place] % (Auto) 7.2 H, Eos % (Auto) 0.5 L, Baso % (Auto) 0.5, Gran # 5.31, Lymph # (Auto) 2.5, [place] # (Auto) 0.6, Eos # (Auto) 0.0, Baso # (Auto) 0.04 - Medication Orders Current Medication Orders: Discontinued Medications Famotidine (Pepcid) 20 mg IVP STAT STA Stop: 07/31/17 14:18 Last Admin: 07/31/17 15:12 Dose: 20 mg IVP Administration Document 07/31/17 15:12 (Rec: 07/31/17 15:32 [id number]) Charges for Administration # of IVP Administrations 1 Sodium Chloride (Sodium Chloride 0.9%) 1,000 mls @ 1,000 mls/hr IV .Q1H STA Stop: 07/31/17 15:16 Last Admin: 07/31/17 15:10 Dose: 1,000 mls/hr eMAR Start Stop Document 07/31/17 15:10 RG (Rec: 07/31/17 15:31 [id number]) Intravenous Solution Start Date 07/31/17 Start Time 15:10 Ketorolac Tromethamine (Toradol) 30 mg IVP STAT STA Stop: 07/31/17 18:03 Ondansetron HCl (Zofran Inj) 4 mg IVP STAT STA Stop: 07/31/17 14:18 Last Admin: 07/31/17 15:11 Dose: 4 mg IVP Administration Document 07/31/17 15:11 (Rec: 07/31/17 15:32 [id number]) Charges for Administration # of IVP Administrations 1 Disposition/Present on Arrival - Present on Arrival Any Indicators Present on Arrival: No History of DVT/PE: No History of Uncontrolled Diabetes: No Urinary Catheter: No History of Decub. Ulcer: No History Surgical Site Infection Following: None - Disposition Have Diagnosis and Disposition been Completed?: Yes Diagnosis: Abdominal pain, Vomiting Disposition: HOME/ ROUTINE Disposition Time: 20:10 Patient Plan: Discharge Condition: STABLE Discharge Instructions (ExitCare): Acute Abdomen (Belly Pain), Nausea and Vomiting, Adult (DC) Additional Instructions: Follow up with your Doctor Follow BAND diet Return to ED for any new or worsening symptoms Prescriptions: Famotidine [Pepcid] 40 mg PO DAILY #15 tab Ondansetron ODT [Zofran ODT] 4 mg PO Q6 #6 odt Referrals: Binu Bentley Jr., MD [Primary Care Provider] - Follow up with primary Forms: [employer] (Cameroonian)
[2017-07-31 20:48] VITALS: BP 127/80; PULSE 65
== END 2017-07-31 20:14 | disposition home or self-care (01) ==
LOC: ED 13:22
DX: R11.10 Vomiting, unspecified (principal); R10.9 Unspecified abdominal pain
CPT/HCPCS: 80053; 81001; 83690; 84702; 85025; 85610; 85730; 96374; 96375; 99284; J2405; J7040

== ENCOUNTER 2017-09-23 20:05 | Emergency (ER) | payer MEDICAID ==
[2017-09-23] MEDS ORDERED: Sodium Chloride 0.9% 1,000 ML IV STA (20:28)
--- NOTE | 2017-09-23 20:34 | ED PDOC ---
Arrival/HPI - General Time Seen by Provider: 09/23/17 20:17 Historian: Patient - History of Present Illness Narrative History of Present Illness (Text): 09/23/17 20:30 A 46 year old female, whose past medical history includes GERD, presents to the emergency department complaining of diarrhea, nausea, and occasional vomiting episodes for past 2 days. Patient reports also experiencing occasional abdominal cramps, as well as appetite changes. Patient denies any fever, chills , chest pain, shortness of breath, back pain, urinary symptoms, or any other complaints at this time. PMD: Dr. Binu Bentley Past Medical History - Provider Review Nursing Documentation Reviewed: Yes - Past History Past History: No Previous - Infectious Disease Hx of Infectious Diseases: None - Tetanus Immunization Tetanus Immunization: Unknown - Past Medical History Past Medical History: No Previous (High cholesterol on the last primary care doctor visit) - Cardiac Hx Cardiac Disorders: Yes - Pulmonary Hx Respiratory Disorders: Yes (SMOKES 6 CIGARETTES EVERY NOW AND THEN.) - Neurological Hx Neurological Disorder: Yes Hx Dizziness: Yes Hx Seizures: Yes (1 time 31 years ago) - HEENT Hx HEENT Disorder: No - Renal Hx Renal Disorder: No - Endocrine/Metabolic Hx Endocrine Disorders: No - Hematological/Oncological Hx Blood Disorders: Yes Hx Anemia: Yes (HAD BLOOD TRANSFUSION 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 1983) - Integumentary Hx Dermatological Disorder: No - Musculoskeletal/Rheumatological Hx Musculoskeletal Disorders: Yes (CERVICAL RADICULOPATHY) Hx Falls: No Hx Fractures: Yes (Broken Foot and Ankle in the past) - Gastrointestinal Hx Gastrointestinal Disorders: Yes Hx Gastroesophageal Reflux: Yes Other/Comment: Gastritis - Genitourinary/Gynecological Hx Genitourinary Disorders: Yes (C SECTION X 3) Hx Urinary Tract Infection: Yes - Psychiatric Hx Psychophysiologic Disorder: Yes Hx Depression: Yes Hx Emotional Abuse: No Hx Physical Abuse: No Hx Sexual Abuse: No Hx Substance Use: No - Surgical History Other/Comment: 3 C-sections - Anesthesia Hx Anesthesia: Yes Hx Anesthesia Reactions: No Hx Malignant Hyperthermia: No - Suicidal Assessment Feels Threatened In Home Enviroment: No Family/Social History - Physician Review Nursing Documentation Reviewed: Yes Family/Social History: No Known Family HX Smoking Status: Current Some Days Smoker Hx Alcohol Use: Yes (COORS LIGHT WHEN SHE SMOKES) Hx Substance Use: No Hx Substance Use Treatment: No Allergies/Home Meds Allergies/Adverse Reactions: Allergies No Known Allergies Allergy (Verified 07/21/17 09:58) Home Medications: Home Meds Medication Instructions Recorded Confirmed Amoxicillin/Clavulanate [Augmentin 1 tab PO BID 07/21/17 07/31/17 875 MG-125 MG] Atorvastatin [Lipitor] 10 mg PO DIN 07/21/17 07/31/17 Review of Systems - Physician Review All systems were reviewed & negative as marked: Yes - Review of Systems Constitutional: absent: Fevers, Night Sweats Respiratory: absent: SOB Cardiovascular: absent: Chest Pain Gastrointestinal: Abdominal Pain (abdominal cramps), Diarrhea, Nausea, Vomiting , Appetite Changes (poor appetite) Genitourinary Female: absent: Dysuria, Frequency, Hematuria, Urine Output Changes Musculoskeletal: absent: Back Pain Physical Exam Vital Signs Temp Pulse Resp BP Pulse Ox 09/23/17 20:30 97.8 F 62 16 112/75 99 Mental Status: Positive for: Alert and Oriented X 3 - Systems Exam Pupils: Present: PERRL Extroacular Muscles: Present: EOMI Conjunctiva: Present: Normal Mouth: Present: Dry Neck: Present: Normal Range of Motion Respiratory/Chest: Present: Clear to Auscultation, Good Air Exchange. No: Respiratory Distress, Accessory Muscle Use Cardiovascular: Present: Regular Rate and Rhythm, Normal S1, S2. No: Murmurs Abdomen: No: Tenderness, Distention, Peritoneal Signs Upper Extremity: Present: Normal Inspection. No: Cyanosis, Edema Lower Extremity: Present: Normal Inspection. No: Edema Neurological: Present: GCS=15, CN II-XII Intact, Speech Normal, Motor Func Grossly Intact, Normal Sensory Function. No: Other (no focal deficits) Skin: Present: Warm, Dry, Normal Color. No: Rashes Psychiatric: Present: Alert, Oriented x 3, Normal Insight, Normal Concentration Medical Decision Making ED Course and Treatment: 09/23/17 20:33 Impression: 46 year old female with diarrhea, nausea, occasional vomiting/ abdominal cramps. Physical exam shows dry mucous membranes; rest of examination is normal. Plan: -- Labs -- Pepcid -- Zofran -- IV Fluids -- Reassess and disposition Progress Notes: - Lab Interpretations Lab Results: 09/23/17 20:51 09/23/17 20:51 Lab Results 09/23/17 20:51: WBC 7.6, RBC 3.83, Hgb 12.1, Hct 35.3 L, MCV 92.2, MCH 31.6, MCHC 34.3, RDW 14.1, Plt Count 279, MPV 10.7 09/23/17 20:51: Sodium 141, Potassium 4.1, Chloride 106, Carbon Dioxide 25, Anion Gap 14, BUN 16, Creatinine 0.7, Est GFR ( Amer) > 60, Est GFR (Non- Af Amer) > 60, Random Glucose 81, Calcium 10.0, Total Bilirubin 0.3, AST 29, ALT 35, Alkaline Phosphatase 53, Total Protein 6.5, Albumin 4.1, Globulin 2.4, Albumin/Globulin Ratio 1.8, Lipase 215 - Medication Orders Current Medication Orders: Discontinued Medications Famotidine (Pepcid) 20 mg IVP STAT STA Stop: 09/23/17 20:29 Last Admin: 09/23/17 20:51 Dose: 20 mg IVP Administration Document 09/23/17 20:51 MS (Rec: 09/23/17 20:51 MS [id number]) Charges for Administration # of IVP Administrations 1 Sodium Chloride (Sodium Chloride 0.9%) 1,000 mls @ 999 mls/hr IV .Q1H1M STA Stop: 09/23/17 21:28 Last Admin: 09/23/17 20:49 Dose: 999 mls/hr eMAR Start Stop Document 09/23/17 20:49 MS (Rec: 09/23/17 20:51 MS [id number]) Intravenous Solution Start Date 09/23/17 Start Time 20:50 End Date 09/23/17 End time 21:50 Total Infusion Time 60 Ondansetron HCl (Zofran Inj) 4 mg IVP ONCE ONE Stop: 09/23/17 20:29 Last Admin: 09/23/17 20:51 Dose: 4 mg IVP Administration Document 09/23/17 20:51 MS (Rec: 09/23/17 20:51 MS [id number]) Charges for Administration # of IVP Administrations 1 - Scribe Statement The provider has reviewed the documentation as recorded by the Janine Zambrano Provider Scribe Attestation: All medical record entries made by the Scribceleste were at my direction and personally dictated by me. I have reviewed the chart and agree that the record accurately reflects my personal performance of the history, physical exam, medical decision making, and the department course for this patient. I have also personally directed, reviewed, and agree with the discharge instructions and disposition. Disposition/Present on Arrival - Present on Arrival Any Indicators Present on Arrival: No History of DVT/PE: No History of Uncontrolled Diabetes: No Urinary Catheter: No History Surgical Site Infection Following: None - Disposition Have Diagnosis and Disposition been Completed?: Yes Diagnosis: Gastroenteritis Disposition: HOME/ ROUTINE Disposition Time: 23:40 Patient Plan: Discharge Condition: GOOD Discharge Instructions (ExitCare): Gastroenteritis (ED) Additional Instructions: Drink frequent small amounts of liquids at a time/take meds as prescribed/ advance diet slowly as tolerated/follow up with your doctor this week Prescriptions: Ondansetron [Zofran Odt] 4 mg PO Q6 #12 odt Referrals: Binu Bentley Jr., MD [Primary Care Provider] - Follow up with primary
[2017-09-23 21:09] LABS: HEMOGLOBIN 12.1 g/dL (12.0-16.0); MEAN CELL VOLUME 92.2 fl (80.0-105.0); MEAN CORPUSCULAR HEMOGLOBIN 31.6 pg (25.0-35.0); MEAN CORPUSCULAR HGB CONC 34.3 g/dl (31.0-37.0); MEAN PLATELET VOLUME 10.7 fl (7.0-11.0); RBC 3.83 10^6/uL (3.5-6.1); RED CELL DISTRIBUTION WIDTH 14.1 % (11.5-14.5); WHITE BLOOD COUNT 7.6 10^3/ul (4.5-11.0)
[2017-09-23 21:21] LABS: ALB/GLOB RATIO 1.8 (1.1-1.8); ALBUMIN 4.1 g/dL (3.0-4.8); GFR AFRICAN-AMERICAN > 60; GFR NON-AFRICAN AMERICAN > 60; LIPASE 215 U/L (23-300)
[2017-09-23 21:24] LABS: ALT/SGPT 35 U/L (7-56); AST/SGOT 29 U/L (14-36); BLOOD UREA NITROGEN 16 mg/dL (7-21)
[2017-09-23 22:59] VITALS: RESP 16; TEMP 97.8; O2SAT 99; BMI 20.9
[2017-09-24 00:02] VITALS: BP 115/76; PULSE 88
== END 2017-09-24 00:14 | disposition home or self-care (01) ==
LOC: ED 20:05
DX: K52.9 Noninfective gastroenteritis and colitis, unspecified (principal); F17.200 Nicotine dependence, unspecified, uncomplicated
CPT/HCPCS: 80053; 83690; 85027; 96361; 96374; 96375; 99284; J2405; J7040

== ENCOUNTER 2018-01-07 13:48 | Emergency (ER) | payer MEDICAID ==
[2018-01-07 14:15] VITALS: BMI 20.7
--- NOTE | 2018-01-07 14:21 | ED PDOC ---
Arrival/HPI - General Chief Complaint: Trauma Time Seen by Provider: 01/07/18 14:03 Historian: Patient - History of Present Illness Time/Duration: Other (6 days) Symptom Onset: Sudden Symptom Course: Worsening Quality: Aching Severity Level: Moderate Associated Symptoms (Text): 01/07/18 14:18 Patient reports that 6 days prior to arrival in the middle of the night she was walking and walked into a door jam. She hit her head and her daughter reports that there was a 3 or 4 minute loss of consciousness. Since that time she's complained of a headache. She also complains of shortness of breath. It is unknown if she had any chest trauma. She complains of chest pain. No nausea or vomiting. No neck or back pain. No numbness tingling or paresthesias. There is generalized, but no focal, weakness. Able to ambulate with no difficulty. Past Medical History - Past History Past History: No Previous - Infectious Disease Hx of Infectious Diseases: None - Tetanus Immunization Tetanus Immunization: Unknown - Past Medical History Past Medical History: No Previous (High cholesterol on the last primary care doctor visit) - Cardiac Hx Cardiac Disorders: Yes - Pulmonary Hx Respiratory Disorders: Yes (SMOKES 6 CIGARETTES EVERY NOW AND THEN.) - Neurological Hx Neurological Disorder: Yes Hx Dizziness: Yes Hx Seizures: Yes (1 time 31 years ago) - HEENT Hx HEENT Disorder: No - Renal Hx Renal Disorder: No - Endocrine/Metabolic Hx Endocrine Disorders: No - Hematological/Oncological Hx Blood Disorders: Yes Hx Anemia: Yes (HAD BLOOD TRANSFUSION 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) - Integumentary Hx Dermatological Disorder: No - Musculoskeletal/Rheumatological Hx Musculoskeletal Disorders: Yes (CERVICAL RADICULOPATHY) Hx Falls: No Hx Fractures: Yes (Broken Foot and Ankle in the past) - Gastrointestinal Hx Gastrointestinal Disorders: Yes Hx Gastroesophageal Reflux: Yes Other/Comment: Gastritis - Genitourinary/Gynecological Hx Genitourinary Disorders: Yes (C SECTION X 3) Hx Urinary Tract Infection: Yes - Psychiatric Hx Psychophysiologic Disorder: Yes Hx Depression: Yes Hx Emotional Abuse: No Hx Physical Abuse: No Hx Sexual Abuse: No Hx Substance Use: No - Surgical History Other/Comment: 3 C-sections - Anesthesia Hx Anesthesia: Yes Hx Anesthesia Reactions: No Hx Malignant Hyperthermia: No - Suicidal Assessment Feels Threatened In Home Enviroment: No Family/Social History - Physician Review Nursing Documentation Reviewed: Yes Family/Social History: Unknown Family HX Smoking Status: Heavy Smoker > 10 Cigarettes Daily Hx Alcohol Use: Yes (COORS LIGHT WHEN SHE SMOKES) Hx Substance Use: No Hx Substance Use Treatment: No Allergies/Home Meds Allergies/Adverse Reactions: Allergies No Known Allergies Allergy (Verified 07/21/17 09:58) Home Medications: Home Meds Medication Instructions Recorded Confirmed Atorvastatin [Lipitor] 10 mg PO DIN 07/21/17 01/07/18 Review of Systems - Physician Review All systems were reviewed & negative as marked: Yes - Review of Systems Constitutional: Normal Respiratory: SOB. absent: Cough, Wheezing Cardiovascular: Chest Pain. absent: Palpitations, Syncope Gastrointestinal: Normal. absent: Abdominal Pain, Nausea, Vomiting Musculoskeletal: Normal Neurological: Normal, Headache. absent: Dizziness, Focal Weakness, Gait Changes , Speech Changes, Facial Droop, Disequilibrium, Seizure Physical Exam Vital Signs Temp Pulse Resp BP Pulse Ox 01/07/18 17:42 73 18 151/98 H 100 01/07/18 15:07 97.9 F 01/07/18 15:05 71 17 140/86 100 Temperature: Afebrile Blood Pressure: Normal Pulse: Regular Respiratory Rate: Normal Appearance: Positive for: Well-Appearing, Non-Toxic, Comfortable Pain Distress: None Mental Status: Positive for: Alert and Oriented X 3 - Systems Exam Head: Present: Atraumatic, Normocephalic Pupils: Present: PERRL Extroacular Muscles: Present: EOMI Conjunctiva: Present: Normal Ears: Present: NORMAL TM, Normal Canal. No: Erythema Mouth: Present: Moist Mucous Membranes Pharnyx: No: ERYTHEMA, EXUDATE, TONSILS ENLARGED Neck: Present: Normal Range of Motion. No: Meningeal Signs, MIDLINE TENDERNESS , Paraspinal Tenderness Respiratory/Chest: Present: Clear to Auscultation, Good Air Exchange, Tender to Palpation (Mild tenderness to the anterior left and right ribs with no skin changes or crepitus). No: Respiratory Distress, Accessory Muscle Use Cardiovascular: Present: Regular Rate and Rhythm, Normal S1, S2. No: Murmurs Abdomen: No: Tenderness, Distention, Peritoneal Signs, Rebound, Guarding Back: Present: Normal Inspection Upper Extremity: Present: Normal Inspection. No: Cyanosis, Edema Lower Extremity: Present: Normal Inspection. No: Edema Neurological: Present: GCS=15, CN II-XII Intact, Speech Normal, Motor Func Grossly Intact, Normal Sensory Function, Normal Cerebellar Funct, Gait Normal Skin: Present: Warm, Dry, Normal Color. No: Rashes Psychiatric: Present: Alert, Oriented x 3, Normal Insight, Normal Concentration Medical Decision Making ED Course and Treatment: 01/07/18 14:22 LMP was 5 years ago. 01/07/18 15:57 EKG shows normal sinus rhythm rate approximately 70 with a sinus arrhythmia and no acute ST or T-wave changes 01/07/18 16:56 Symptoms improved. Discharged home to follow up with PMD. Follow up in ER as needed. Description for Naprosyn given. - Lab Interpretations Lab Results: 01/07/18 14:49 01/07/18 14:49 Lab Results 01/07/18 14:49: Sodium 141, Potassium 4.2, Chloride 110 H, Carbon Dioxide 23, Anion Gap 12, BUN 17, Creatinine 0.7, Est GFR ( Amer) > 60, Est GFR (Non- Af Amer) > 60, Random Glucose 87, Calcium 9.7, Magnesium 1.8, Total Bilirubin 0.9, AST 33, ALT 35, Alkaline Phosphatase 66, Lactate Dehydrogenase 641, Total Creatine Kinase 273 H, CK-MB (CK-2) 4.1 H, CK-MB (CK-2) % Cancelled, Troponin I 0.02 D, NT-Pro-B Natriuret Pep 64.5, Total Protein 6.8, Albumin 4.3, Globulin 2.5, Albumin/Globulin Ratio 1.7 01/07/18 14:49: D-Dimer, Quantitative < 200 01/07/18 14:49: WBC 6.8, RBC 4.00, Hgb 12.7, Hct 36.3, MCV 90.8, MCH 31.8, MCHC 35.0, RDW 12.8, Plt Count 262, MPV 10.8, Gran % 54.9, Lymph % (Auto) 34.6, [place] % (Auto) 9.5 H, Eos % (Auto) 0.6 L, Baso % (Auto) 0.4, Gran # 3.75, Lymph # ( Auto) 2.4, [place] # (Auto) 0.7 H, Eos # (Auto) 0.0, Baso # (Auto) 0.03 - RAD Interpretation Radiology Orders: 01/07/18 14:15 CHEST TWO VIEWS (PA/LAT) [RAD] Stat 01/07/18 14:16 HEAD W/O CONTRAST [CT] Stat CT scan of the head as read by the radiologist shows no acute findings. Chest one view shows no infiltrate effusion cardiomegaly or pneumothorax. Telecommunications Clerk: Radiologist - Medication Orders Current Medication Orders: Discontinued Medications Ketorolac Tromethamine (Toradol) 15 mg IVP ONCE ONE Stop: 01/07/18 14:17 Last Admin: 01/07/18 15:15 Dose: 15 mg MAR Pain Assessment Document 01/07/18 15:15 MR (Rec: 01/07/18 15:17 MR [id number]) Pain Reassessment Is this a pain reassessment? Yes Sleep Is patient sleeping during reassessment? No Presence of Pain Presence of Pain Yes Pain Scale Used Pain Scale Used Numeric Location Left, Right or Bilateral Left Pain Location Body Site Chest Description Description Constant Intensity of Pain at present 7 Aggravating Factors Changing Position Exercise/Activity IVP Administration Document 01/07/18 15:15 MR (Rec: 01/07/18 15:17 [id number]) Charges for Administration # of IVP Administrations 1 Disposition/Present on Arrival - Present on Arrival Any Indicators Present on Arrival: No History of DVT/PE: No History of Uncontrolled Diabetes: No Urinary Catheter: No History of Decub. Ulcer: No History Surgical Site Infection Following: None - Disposition Have Diagnosis and Disposition been Completed?: Yes Diagnosis: Head contusion, Chest wall contusion Disposition: HOME/ ROUTINE Disposition Time: 16:57 Patient Plan: Discharge Condition: GOOD Discharge Instructions (ExitCare): Contusion (DC), Minor Head Injury, Bruised Rib (DC) Additional Instructions: Rest and moist heat. Follow-up with PMD. Follow up in ER as needed. Prescriptions: Naproxen [Naprosyn] 500 mg PO BID #14 tab Referrals: Binu Bentley Jr., MD [Primary Care Provider] - Follow up with primary Forms: [employer] (Ivorian)
[2018-01-07 15:06] VITALS: O2SAT 100
[2018-01-07 15:07] VITALS: TEMP 97.9
[2018-01-07 15:10] LABS: BASO # 0.03 K/mm3 (0.0-2.0); BASO % 0.4 % (0.0-3.0); EOS % 0.6 % (1.5-5.0); GRAN # 3.75 (1.4-6.5); GRAN % 54.9 % (50.0-68.0); HEMOGLOBIN 12.7 g/dL (12.0-16.0); LYMPH # 2.4 (1.2-3.4); LYMPH % 34.6 % (22.0-35.0); MEAN CELL VOLUME 90.8 fl (80.0-105.0); MEAN CORPUSCULAR HEMOGLOBIN 31.8 pg (25.0-35.0); MEAN PLATELET VOLUME 10.8 fl (7.0-11.0); MONO # 0.7 (0.1-0.6); MONO % 9.5 % (1.0-6.0); RED CELL DISTRIBUTION WIDTH 12.8 % (11.5-14.5); WHITE BLOOD COUNT 6.8 10^3/ul (4.5-11.0)
[2018-01-07 15:15] LABS: ALB/GLOB RATIO 1.7 (1.1-1.8); ALBUMIN 4.3 g/dL (3.0-4.8); ALT/SGPT 35 U/L (7-56); AST/SGOT 33 U/L (14-36); BLOOD UREA NITROGEN 17 mg/dL (7-21); CALCIUM 9.7 mg/dL (8.4-10.5); GFR AFRICAN-AMERICAN > 60; GFR NON-AFRICAN AMERICAN > 60
[2018-01-07 15:27] LABS: B-TYPE NATRIURETIC PEPTIDE 64.5 pg/mL (0-450); TROPONIN I 0.02 ng/mL
[2018-01-07 15:33] LABS: CK-MB 4.1 ng/mL (0.0-3.6)
--- NOTE | 2018-01-07 16:44 | CT ---
Date of service: 01/07/2018 PROCEDURE: CT HEAD WITHOUT CONTRAST. HISTORY: trauma COMPARISON: 03/01/2017. CT head. 03/01/2017 MRI brain. TECHNIQUE: Axial computed tomography images were obtained through the head/brain without intravenous contrast. Coronal and sagittal reconstructed images. Radiation dose: Total exam DLP = 780.45 mGy-cm. This CT exam was performed using one or more of the following dose reduction techniques: Automated exposure control, adjustment of the mA and/or kV according to patient size, and/or use of iterative reconstruction technique. FINDINGS: HEMORRHAGE: No intracranial hemorrhage. BRAIN: No mass effect or edema. No atrophy or chronic microvascular ischemic changes. VENTRICLES: Unremarkable. No hydrocephalus. CALVARIUM: Unremarkable. PARANASAL SINUSES: Unremarkable as visualized. No significant inflammatory changes. MASTOID AIR CELLS: Unremarkable as visualized. No inflammatory changes. OTHER FINDINGS: None. IMPRESSION: No acute intracranial abnormalities. No significant findings to account for the clinical presentation. No significant interval change compared to the prior examination(s).
--- NOTE | 2018-01-07 17:27 | CARD ---
APPROVED REPORT Date of service: 01/07/2018 EKG Measurement Heart [id number] <Conclusion> Sinus rhythm with marked sinus arrhythmia Prolonged QT Abnormal ECG
[2018-01-07 17:43] VITALS: BP 151/98; PULSE 73; RESP 18
--- NOTE | 2018-01-08 09:01 | RAD ---
Date of service: 01/07/2018 HISTORY: Shortness of breath. COMPARISON: 07/21/2017. TECHNIQUE: Chest PA and lateral FINDINGS: LUNGS: Clear. PLEURA: No significant pleural effusion identified. No pneumothorax apparent. CARDIOVASCULAR: Normal. OSSEOUS STRUCTURES: No significant abnormalities. VISUALIZED UPPER ABDOMEN: Normal. OTHER FINDINGS: None. IMPRESSION: No active disease. No significant interval change compared to the prior examination(s).
== END 2018-01-07 17:42 | disposition home or self-care (01) ==
LOC: ED 13:48
DX: S00.93XA Contusion of unspecified part of head, initial encounter (principal); S20.219A Contusion of unspecified front wall of thorax, initial encounter; W22.8XXA Striking against or struck by other objects, initial encounter; Y92.9 Unspecified place or not applicable
CPT/HCPCS: 70450; 71046; 80053; 82550; 82553; 83615; 83735; 83880; 84484; 85025; 85378; 93005; 96374; 99285; J1885

== ENCOUNTER 2018-01-08 11:41 | Emergency (ER) | payer MEDICAID ==
[2018-01-08 11:42] VITALS: BMI 20.7
[2018-01-08 12:10] VITALS: TEMP 98.4; O2SAT 100
--- NOTE | 2018-01-08 12:31 | ED PDOC ---
Arrival/HPI - General Chief Complaint: Medical Clearance Time Seen by Provider: 01/08/18 11:42 Historian: Patient - History of Present Illness Narrative History of Present Illness (Text): 01/08/18 12:15 A 47 year old female smoker/drinker, whose past medical history includes dizziness and GERD, presents to the emergency department complaining of various symptoms. Patient reports somebody "trying to off me". States she was given 2 different pills. I have taken them to be identified at the pharmacy. Patient states experiencing headache, chest pain, palpitations, abdominal pain, nausea, numbness throughout body, feeling jittery sensation, fatigue, and weakness. Patient mentions no other complaints at this time. Also, patient denies any substance abuse. No PMD Associated Symptoms (Text): 01/08/18 12:52 I saw this patient yesterday for complaints of a head injury approximately 1 week ago along with chest pain and shortness of breath. Her workup was unremarkable and she was discharged home. Patient reports to the emergency department today with 2 grandchildren claiming that someone is trying to "off" her. She reports that she went to take her normal medications this morning and someone had put different medications and her pill bottles. She took 2 pills that were not her normal medications and reports that she immediately developed multiple somatic complaints. She complained of headache dizziness chest pain shortness of breath abdominal pain nausea generalized numbness and tingling throughout her entire body and feeling jittery. I took the pills to pharmacy and they were identified as 81 mg aspirin. Blood work has been done for medical clearance for a crisis evaluation for this patient. Past Medical History - Provider Review Nursing Documentation Reviewed: Yes - Past History Past History: No Previous - Infectious Disease Hx of Infectious Diseases: None - Tetanus Immunization Tetanus Immunization: Unknown - Reproductive Menopause: Yes - Past Medical History Past Medical History: No Previous (High cholesterol on the last primary care doctor visit) - Cardiac Hx Cardiac Disorders: Yes - Pulmonary Hx Respiratory Disorders: Yes (SMOKES 6 CIGARETTES EVERY NOW AND THEN.) - Neurological Hx Neurological Disorder: Yes Hx Dizziness: Yes Hx Seizures: Yes (1 time 31 years ago) - HEENT Hx HEENT Disorder: No - Renal Hx Renal Disorder: No - Endocrine/Metabolic Hx Endocrine Disorders: No - Hematological/Oncological Hx Blood Disorders: Yes Hx Anemia: Yes (HAD BLOOD TRANSFUSION 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 1983) - Integumentary Hx Dermatological Disorder: No - Musculoskeletal/Rheumatological Hx Musculoskeletal Disorders: Yes (CERVICAL RADICULOPATHY) Hx Falls: No Hx Fractures: Yes (Broken Foot and Ankle in the past) - Gastrointestinal Hx Gastrointestinal Disorders: Yes Hx Gastroesophageal Reflux: Yes Other/Comment: Gastritis - Genitourinary/Gynecological Hx Genitourinary Disorders: Yes (C SECTION X 3) Hx Urinary Tract Infection: Yes - Psychiatric Hx Psychophysiologic Disorder: Yes Hx Depression: Yes Hx Emotional Abuse: No Hx Physical Abuse: No Hx Sexual Abuse: No Hx Substance Use: No - Surgical History Other/Comment: 3 C-sections - Anesthesia Hx Anesthesia: Yes Hx Anesthesia Reactions: No Hx Malignant Hyperthermia: No - Suicidal Assessment Feels Threatened In Home Enviroment: No Family/Social History - Physician Review Nursing Documentation Reviewed: Yes Family/Social History: No Known Family HX Smoking Status: Heavy Smoker > 10 Cigarettes Daily Hx Alcohol Use: Yes (COORS LIGHT WHEN SHE SMOKES) Hx Substance Use: No Hx Substance Use Treatment: No Allergies/Home Meds Allergies/Adverse Reactions: Allergies No Known Allergies Allergy (Verified 07/21/17 09:58) Home Medications: Home Meds Medication Instructions Recorded Confirmed Atorvastatin [Lipitor] 10 mg PO DIN 07/21/17 01/08/18 Review of Systems - Physician Review All systems were reviewed & negative as marked: Yes - Review of Systems Constitutional: Fatigue, Other (weakness). absent: Fevers Respiratory: SOB Cardiovascular: Chest Pain, Palpitations Gastrointestinal: Abdominal Pain, Nausea Neurological: Headache, Other (numbness throughout body; jittery sensation) Physical Exam Vital Signs Reviewed: Yes Vital Signs Temp Pulse Resp BP Pulse Ox 01/08/18 13:45 73 17 140/85 100 01/08/18 11:51 98.4 F 74 18 145/87 100 Temperature: Afebrile Blood Pressure: Normal Pulse: Regular Respiratory Rate: Normal Appearance: Positive for: Well-Appearing, Non-Toxic, Comfortable Pain Distress: None Mental Status: Positive for: Alert and Oriented X 3, other (pressured speech) - Systems Exam Head: Present: Atraumatic, Normocephalic Pupils: Present: PERRL Extroacular Muscles: Present: EOMI Conjunctiva: Present: Normal Mouth: Present: Moist Mucous Membranes Pharnyx: No: ERYTHEMA, EXUDATE, TONSILS ENLARGED Neck: Present: Normal Range of Motion Respiratory/Chest: Present: Clear to Auscultation, Good Air Exchange. No: Respiratory Distress, Accessory Muscle Use Cardiovascular: Present: Regular Rate and Rhythm, Normal S1, S2. No: Murmurs Abdomen: No: Tenderness, Distention, Peritoneal Signs Back: Present: Normal Inspection Upper Extremity: Present: Normal Inspection. No: Cyanosis, Edema Lower Extremity: Present: Normal Inspection. No: Edema Neurological: Present: GCS=15, CN II-XII Intact, Speech Normal, Motor Func Grossly Intact, Normal Sensory Function, Normal Cerebellar Funct Skin: Present: Warm, Dry, Normal Color. No: Rashes Psychiatric: Present: Alert, Oriented x 3, Normal Insight, Normal Concentration , Anxious, Delusional Medical Decision Making ED Course and Treatment: 01/08/18 12:19 Impression: 47 year female for headache, chest pain, palpitations, abdominal pain, nausea, numbness throughout body, feeling jittery sensation, fatigue, and weakness. No acute findings on physical examinations, except for patient has pressured speech. Plan: -- EKG -- Chest X-ray -- Labs -- Urinalysis -- Reassess and disposition Prior Visits: Notes and results from previous visits were reviewed. Patient was last seen in the emergency department on 01/07/2018 for headache s/p head injury. Patient was discharged home. Progress Notes: 01/08/18 12:30 Pharmacy has identified the 2 pills patient has given to me as both 81 mg chewable Aspirin. 01/08/18 12:59 EKG shows normal sinus rhythm rate approximately [address] or T-wave changes. 01/08/18 13:50 Discussed with crisis who will evaluate the patient in the emergency department. 01/08/18 15:35 Patient was seen and evaluated by crisis. No disposition has been made. The patient eloped. Police were called to bring the patient back to the emergency department. 01/08/18 15:59 Discussed with crisis who did speak with the psychiatrist. Crisis is aware that the patient has eloped and police have been called. The case is being endorsed to the next layout worker. 01/08/18 17:37 [place] police had been called, but the patient is a resident of [place] and the [place] police have been called, but the patient has not yet been returned to the emergency department. A new chart will need to be started when the patient finally does arrive. - Lab Interpretations Lab Results: 01/08/18 12:36 01/08/18 12:36 Lab Results 01/08/18 12:36: Alcohol, Quantitative < 10 01/08/18 12:36: Salicylates < 1 L, Acetaminophen < 10.0 L 01/08/18 12:36: Urine Opiates Screen Negative, Urine Methadone Screen Negative, Ur Barbiturates Screen Negative, Ur Phencyclidine Scrn Negative, Ur Amphetamines Screen Negative, U Benzodiazepines Scrn Negative, U Oth Cocaine Metabols Negative, U Cannabinoids Screen Positive H 01/08/18 12:36: Sodium 140, Potassium 3.8, Chloride 107, Carbon Dioxide 23, Anion Gap 14, BUN 14, Creatinine 0.7, Est GFR ( Amer) > 60, Est GFR (Non- Af Amer) > 60, Random Glucose 99, Calcium 9.7, Magnesium 1.8, Total Bilirubin 0.8, AST 32, ALT 42, Alkaline Phosphatase 68, Total Creatine Kinase 191, Total Protein 7.6, Albumin 4.6, Globulin 3.0, Albumin/Globulin Ratio 1.5 01/08/18 12:36: Urine Color Yellow, Urine Appearance Clear, Urine pH 6.0, Ur Specific [place] >= 1.030, Urine Protein 30 H, Urine Glucose (UA) Negative, Urine Ketones Negative, Urine Blood Negative, Urine Nitrate Negative, Urine Bilirubin Negative, Urine Urobilinogen 0.2, Ur Leukocyte Esterase Negative, Urine RBC 0 - 2, Urine WBC 0 - 2, Ur Epithelial Cells 3 - 4, Urine Bacteria Mod 01/08/18 12:36: WBC 6.7, RBC 4.27, Hgb 13.5, Hct 38.7, MCV 90.6, MCH 31.6, MCHC 34.9, RDW 12.9, Plt Count 264, MPV 10.3, Gran % 63.6, Lymph % (Auto) 29.0, [place] % (Auto) 6.0, Eos % (Auto) 0.6 L, Baso % (Auto) 0.8, Gran # 4.23, Lymph # (Auto ) 1.9, [place] # (Auto) 0.4, Eos # (Auto) 0.0, Baso # (Auto) 0.05 - RAD Interpretation Radiology Orders: 01/08/18 12:19 CHEST PORTABLE [RAD] Stat Chest one view shows no infiltrate effusion or cardiomegaly. Data Base Design Analyst: Radiologist - Scribe Statement The provider has reviewed the documentation as recorded by the Janine Zambrano Provider Scribe Attestation: All medical record entries made by the Scribe were at my direction and personally dictated by me. I have reviewed the chart and agree that the record accurately reflects my personal performance of the history, physical exam, medical decision making, and the department course for this patient. I have also personally directed, reviewed, and agree with the discharge instructions and disposition. Disposition/Present on Arrival - Present on Arrival Any Indicators Present on Arrival: No History of DVT/PE: No History of Uncontrolled Diabetes: No Urinary Catheter: No History of Decub. Ulcer: No History Surgical Site Infection Following: None - Disposition Have Diagnosis and Disposition been Completed?: Yes Diagnosis: Delusions Disposition: ELOPEMENT - ER ONLY Disposition Time: 18:10 Patient Plan: Discharge Condition: GOOD Forms: [employer] ([place]er)
[2018-01-08 12:57] LABS: BASO # 0.05 K/mm3 (0.0-2.0); BASO % 0.8 % (0.0-3.0); EOS % 0.6 % (1.5-5.0); GRAN # 4.23 (1.4-6.5); GRAN % 63.6 % (50.0-68.0); HEMOGLOBIN 13.5 g/dL (12.0-16.0); LYMPH # 1.9 (1.2-3.4); MEAN CELL VOLUME 90.6 fl (80.0-105.0); MEAN CORPUSCULAR HEMOGLOBIN 31.6 pg (25.0-35.0); MEAN CORPUSCULAR HGB CONC 34.9 g/dl (31.0-37.0); MEAN PLATELET VOLUME 10.3 fl (7.0-11.0); MONO # 0.4 (0.1-0.6); RBC 4.27 10^6/uL (3.5-6.1); RED CELL DISTRIBUTION WIDTH 12.9 % (11.5-14.5); WHITE BLOOD COUNT 6.7 10^3/ul (4.5-11.0)
[2018-01-08 13:05] LABS: URINE BILIRUBIN NEGATIVE (NEGATIVE); URINE BLOOD NEGATIVE (NEGATIVE); URINE GLUCOSE (UA) NEGATIVE (NEGATIVE); URINE LEUKOCYTE ESTERASE NEGATIVE Leu/uL (NEGATIVE); URINE PROTEIN 30 mg/dL (<30 mg/dL); URINE UROBILINOGEN 0.2 E.U./dL (<1 E.U./dL)
[2018-01-08 13:06] LABS: URINE APPEARANCE CLEAR (CLEAR); URINE COLOR YELLOW (YELLOW)
[2018-01-08 13:08] LABS: ALB/GLOB RATIO 1.5 (1.1-1.8); ALBUMIN 4.6 g/dL (3.0-4.8); ALT/SGPT 42 U/L (7-56); AST/SGOT 32 U/L (14-36); BLOOD UREA NITROGEN 14 mg/dL (7-21); CALCIUM 9.7 mg/dL (8.4-10.5); GFR AFRICAN-AMERICAN > 60; GFR NON-AFRICAN AMERICAN > 60
[2018-01-08 13:12] LABS: ACETAMINOPHEN < 10.0 ug/ml (10.0-20.0); SALICYLATE < 1 mg/dL (2.0-20.0)
[2018-01-08 13:22] LABS: BARBITURATES, UR NEGATIVE (NEGATIVE); BENZODIAZEPINES, UR NEGATIVE (NEGATIVE); OPIATES, UR NEGATIVE (NEGATIVE); PHENCYCLIDINE, UR NEGATIVE (NEGATIVE)
[2018-01-08 13:31] LABS: URINE BACTERIA MOD (NEG); URINE RBC 0 - 2 /hpf (0-2); URINE WBC 0 - 2 /hpf (0-6)
--- NOTE | 2018-01-08 13:49 | RAD ---
Date of service: 01/08/2018 HISTORY: Overdose COMPARISON: No prior. FINDINGS: LUNGS: No active pulmonary disease. PLEURA: No significant pleural effusion identified, no pneumothorax apparent. CARDIOVASCULAR: Normal. OSSEOUS STRUCTURES: No significant abnormalities. VISUALIZED UPPER ABDOMEN: Normal. OTHER FINDINGS: None. IMPRESSION: No active disease.
[2018-01-08 14:55] VITALS: BP 140/85; PULSE 73; RESP 17
--- NOTE | 2018-01-08 20:01 | CARD ---
APPROVED REPORT Date of service: 01/08/2018 EKG Measurement Heart [id number] <Conclusion> Normal sinus rhythm Normal ECG
== END 2018-01-08 15:30 | disposition left against medical advice (07) ==
LOC: ED 11:41
DX: F22 Delusional disorders (principal); K21.9 Gastro-esophageal reflux disease without esophagitis